=== PATIENT | male | born 1945 | race Caucasian/White ===

== ENCOUNTER → 2017-07-09 | Outpatient (CLI) | payer MEDICARE, BC ==
[~2017-07-09] MED LIST: AMLO5TAB2 GT; AMLO5TAB2 PO; ATEN100T88 PO; DOXA1TAB2 PO; FENO135C PO; LISI20TA PO; LOSA100T7 PO; METF-380 PO; POTA8TAB PO; TRIA1TAB5 PO
--- NOTE | 2017-07-09 17:18 | Diagnostic Imaging Report ---
INDICATION: Left knee pain. AP, oblique, and lateral views of the left knee are obtained. FINDINGS: There is medial joint space narrowing with osteophyte formation of moderate severity. There is no significant lateral joint space narrowing. There is some patellofemoral spurring. There is a moderate-sized knee joint effusion. There is no acute fracture. IMPRESSION: Osteoarthritic changes in the medial and patellofemoral compartments with moderate knee joint effusion. No acute fracture. Dictated by: Dictated on workstation # [id number]
== END ==
LOC: RAD 16:26
PROVIDERS: ATTEND Family Medicine
DX: M17.12 Unilateral primary osteoarthritis, left knee (principal)
CPT/HCPCS: 73562

== ENCOUNTER 2017-08-20 08:57 | Outpatient (CLI) | payer MEDICARE ==
[~2017-08-20] VITALS: Ht 170.2 cm; Wt 117.9 kg
[2017-08-20 09:08] VITALS: BP 148/91
[2017-08-20] MEDS ORDERED: CAND32TA8 PO (09:37)
[2017-08-20] MEDS ORDERED: METF1000 PO (09:37)
[2017-08-20] MEDS ORDERED: NF-COLE1GM PO (09:37)
[2017-08-20] MEDS ORDERED: POTA8TAB6 PO (09:37)
[2017-08-20] MEDS ORDERED: DOXA2TAB2 PO (09:37)
[2017-08-20] MEDS ORDERED: TRIA1TAB5 PO (09:37)
[2017-08-20] MEDS ORDERED: ATEN100T PO (09:37)
[2017-08-20] MEDS ORDERED: ESCI10TA55 PO (09:37)
[2017-08-20] MEDS ORDERED: AMLO5TAB2 PO (09:37)
== END 2017-08-20 09:25 | disposition home or self-care (01) ==
LOC: PREOP 08:57
PROVIDERS: ATTEND Orthopaedic Surgery
DX: Z01.818 Encounter for other preprocedural examination (principal); Z11.2 Encounter for screening for other bacterial diseases; M23.8X2 Other internal derangements of left knee
CPT/HCPCS: 87081

== ENCOUNTER 2017-08-26 07:43 | Day surgery (SDC) | payer MEDICARE ==
--- NOTE | 2017-08-19 06:13 | HISTORY AND PHYSICAL ---
DATE OF SERVICE: This will be for outpatient surgery on 08/26/2017 for left knee arthroscopy. HISTORY OF PRESENT ILLNESS: The patient is a 72-year-old gentleman with a known arthrosis of his left knee. He, however, reports catching and locking in his knee. He reports swelling. He understands he will likely require total knee arthroplasty in the future, but does not desire this currently. In order to try to provide some symptomatic relief and help with his mechanical symptoms, he has elected to proceed with surgical intervention. He reports activity limitations because of the knee. He has undergone treatment with rest, activity modifications, and injections without relief. REVIEW OF SYSTEMS: No chest pain, no shortness of breath. No dysuria. PAST MEDICAL HISTORY: Diabetes, hyperlipidemia, hypertension. PAST SURGICAL HISTORY: Right knee arthroscopies. FAMILY HISTORY: Noncontributory. PRIMARY CARE PROVIDER: Dr. Alvarado. MEDICATIONS: Potassium, atenolol, , candesartan, Cardura, escitalopram. ALLERGIES: No known drug allergies. SOCIAL HISTORY: The patient drinks alcohol socially. Denies tobacco use. RADIOGRAPHS: Reveal tricompartmental osteoarthritis with some maintenance of his medial joint space. Lateral joint space is well maintained. PHYSICAL EXAMINATION: GENERAL: The patient is well-developed, well-nourished, no acute distress. HEENT: Normocephalic, atraumatic. Pupils are equal, round, reactive to light. Oropharynx is clear. NECK: Supple, no lymphadenopathy. LUNGS: Clear to auscultation bilaterally. HEART: Regular rate and rhythm. ABDOMEN: Soft, nontender, nondistended. EXTREMITIES: Left knee demonstrates tenderness along his medial joint line. He has patellofemoral crepitus and pain with patellar loading. A slight effusion is noted. Range of motion 0/2/130. There is no varus valgus laxity. Negative anterior and posterior drawer. He has pain medially with Karishma's. He ambulates with an antalgic gait. 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 PLAN: Left knee arthroscopy with chondroplasty and partial meniscectomy. The risks, benefits, options, ramifications and recovery have been discussed at length with the patient. He understands and wishes to proceed. Job ID: [id number] DocumentID: [id number] Dictated Date: 08/18/2017 09:31:37 Liberal Arts Teacher Date: 08/18/2017 10:11:13 Dictated By: JOSELITO DUKE MD
[~2017-08-26] VITALS: Ht 170.2 cm; Wt 117.9 kg
[~2017-08-26 07:43] MED LIST changes: +ATEN100T PO; +CAND32TA8 PO; +DOXA2TAB2 PO; +ESCI10TA55 PO; +METF1000 PO; +NF-COLE1GM PO; +POTA8TAB6 PO
--- OUTSIDE RECORDS SUMMARY | 2017-08-26 07:47 | XMS REPORT | Continuity of Care Document ---
Author Author [facility] Organization [facility] Address Unknown Phone Unavailable Allergies Active Description Code Type Severity Reaction Onset Reported/Identified Relationship to Patient Clinical Status Yes No Known Drug Allergies [id number] Drug Allergy Unknown N/A 02/07/2013 Medications There is no data. Problems Date Dx Coded Attending Type Code Diagnosis Diagnosed By 02/07/2013 DOMINGA WOLF, LYSSA Torres Ot 250.00 DIAB AMIRA WO COMPL, TYPE II OR UNSPEC TY 02/07/2013 DOMINGA WOLF, LYSSA Torres Ot 401.9 HYPERTENSION NOS 02/07/2013 LYSSA ORR MD Ot 562.10 DIVERTICULOSIS COLON (W/O MENT OF HEMORR 02/07/2013 DOMINGA WOLF, LYSSA Torres Ot V12.72 PERSONAL HISTORY OF COLONIC POLYPS 02/07/2013 DOMINGA WOLF, LYSSA Torres Ot V67.09 SURGERY FOLLOW-UP, OTHER SURGERY 06/03/2016 Ot 793.11 SOLITARY PULMONARY NODULE 06/03/2016 Ot V70.3 MED EXAM NEC- ADMIN PURP 06/03/2016 Ot 793.11 SOLITARY PULMONARY NODULE 06/03/2016 LYSSA ORR MD Ot V72.84 EXAM PRE-OPERATIVE NOS 06/25/2016 Ot 793.11 SOLITARY PULMONARY NODULE 06/25/2016 Ot V70.3 MED EXAM NEC- ADMIN PURP 06/25/2016 Ot 793.11 SOLITARY PULMONARY NODULE 06/25/2016 LYSSA ORR MD Ot V72.84 EXAM PRE-OPERATIVE NOS 06/25/2016 YOUNG LARIOS APRN Ot M19.072 PRIMARY OSTEOARTHRITIS, LEFT ANKLE AND F 06/25/2016 YOUNG LARIOS APRN Ot M77.32 CALCANEAL SPUR, LEFT FOOT 07/03/2016 YOUNG LARIOS APRN Ot M19.072 PRIMARY OSTEOARTHRITIS, LEFT ANKLE AND F 07/03/2016 YOUNG LARIOS APRN Ot M77.32 CALCANEAL SPUR, LEFT FOOT 07/30/2017 ARMANDO HIRSCH DO Ot M17.12 UNILATERAL PRIMARY OSTEOARTHRITIS, LEFT 08/06/2017 ARMANDO HIRSCH DO Ot M17.12 UNILATERAL PRIMARY OSTEOARTHRITIS, LEFT Procedures There is no data. Results Test Result Range Automated blood complete blood count (hemogram) panel - 06/03/16 16:49 Blood leukocytes automated count (number/volume) 8.4 10*3/uL 4.3-11.0 Blood erythrocytes automated count (number/volume) 5.53 10*6/uL 4.35-5.85 Venous blood hemoglobin measurement (mass/volume) 15.5 g/dL 13.3-17.7 Blood hematocrit (volume fraction) 46 % 40-54 Automated erythrocyte mean corpuscular volume 83 [foz_us] 80-99 Automated erythrocyte mean corpuscular hemoglobin (mass per erythrocyte) 28 pg 25-34 Automated erythrocyte mean corpuscular hemoglobin concentration measurement ( mass/volume) 34 g/dL 32-36 Automated erythrocyte distribution width ratio 13.7 % 10.0-14.5 Automated blood platelet count (count/volume) 179 10*3/uL 130-400 Automated blood platelet mean volume measurement 10.2 [foz_us] 7.4-10.4 Erythrocyte sedimentation rate by westergren method - 06/03/16 16:49 Erythrocyte sedimentation rate by westergren method 1 mm 0-30 Comprehensive metabolic panel - 06/03/16 16:49 Serum or plasma sodium measurement (moles/volume) 133 mmol/L 135-145 Serum or plasma potassium measurement (moles/volume) 3.9 mmol/L 3.6-5.0 Serum or plasma chloride measurement (moles/volume) 100 mmol/L 98-107 Carbon dioxide 21 mmol/L 21-32 Serum or plasma anion gap determination (moles/volume) 12 mmol/L 5-14 Serum or plasma urea nitrogen measurement (mass/volume) 8 mg/dL 7-18 Serum or plasma creatinine measurement (mass/volume) 0.73 mg/dL 0.60-1.30 Serum or plasma urea nitrogen/creatinine mass ratio 11 NRG Serum or plasma creatinine measurement with calculation of estimated glomerular filtration rate > NRG Serum or plasma glucose measurement (mass/volume) 83 mg/dL 70-105 Serum or plasma calcium measurement (mass/volume) 9.5 mg/dL 8.5-10.1 Serum or plasma total bilirubin measurement (mass/volume) 0.5 mg/dL 0.1-1.0 Serum or plasma alkaline phosphatase measurement (enzymatic activity/volume) 53 U/L 40-136 Serum or plasma aspartate aminotransferase measurement (enzymatic activity/ volume) 17 U/L 5-34 Serum or plasma alanine aminotransferase measurement (enzymatic activity/volume ) 23 U/L 0-55 Serum or plasma protein measurement (mass/volume) 7.2 g/dL 6.4-8.2 Serum or plasma albumin measurement (mass/volume) 4.4 g/dL 3.2-4.5 Serum or plasma uric acid measurement (mass/volume) - 06/03/16 16:49 Serum or plasma uric acid measurement (mass/volume) 4.0 mg/dL 2.6-7.2 Methicillin resistant Staphylococcus aureus (MRSA) screening culture - 09:18 Methicillin resistant Staphylococcus aureus (MRSA) screening culture NEG NRG Encounters ACCT No. Visit Date/Time Discharge Status Pt. Type Provider Facility Loc./Unit Complaint [id number] 08/20/2017 08:57:00 08/20/2017 09:25:00 DIS Outpatient JOSELITO DUKE MD [facility] PREOP LEFT KNEE SCOPE/ PART MED.MEN REP AND CHONDROPLASTY [id number] 07/09/2017 16:26:00 07/09/2017 23:59:59 CLS Outpatient ARMANDO HIRSCH DO [facility] RAD L KNEE PAIN [id number] 06/03/2016 16:32:00 06/03/2016 23:59:59 CLS Outpatient YOUNG LARIOS APRN [facility] RAD LEFT FOOT PAIN, REDNESS,SWELLING [id number] 02/07/2013 11:03:00 02/07/2013 14:50:00 DIS Outpatient LYSSA ORR MD [facility] SDC HX POLYPS [id number] 02/02/2013 07:30:00 02/02/2013 23:59:59 CLS Outpatient LYSSA ORR MD [facility] PREOP HX POLYPS [id number] 08/26/2017 09:45:00 PEN Preadmit JOSELITO DUKE MD [facility] LEFT KNEE MEDIAL MENISCUS TEAR [id number] 02/17/2012 13:33:00 Document Registration [id number] 07/09/2011 17:14:00 Document Registration
[2017-08-26 07:50] VITALS: BP 136/94
[2017-08-26] MEDS ORDERED: LACTATED RINGERS 1,000 ML IV PRN (07:50)
[2017-08-26] MEDS ORDERED: ceFAZolin INJECTION 1,000 MG in D5W 50 ML IVPB SOLUTION 50 ML IV ONE (08:00)
[2017-08-26] MEDS ORDERED: BUPIVACAINE 0.25% 30 ML (SENSORCAINE) VIAL ONE (08:11)
[2017-08-26] MEDS ORDERED: morphine PF (DURAMORPH) 10 MG/10 ML AMP ONE (08:11)
[2017-08-26] MEDS ORDERED: fentaNYL INJECTION 100 MCG/2 ML AMP ONE (08:24)
[2017-08-26] MEDS ORDERED: MIDAZOLAM 2 MG/2 ML (VERSED) VIAL ONE (08:24)
[2017-08-26] MEDS ORDERED: ceFAZolin 1,000 MG (ANCEF) VIAL ONE (08:51)
[2017-08-26] MEDS ORDERED: NS (IVPB) 50 ML ONE (08:51)
--- NOTE | 2017-08-26 09:20 | Progress Note-Pre Operative ---
Pre-Operative Progress Note H&P Reviewed The H&P was reviewed, patient examined and no changes noted. Date Seen by Provider: Aug 26, 2017 Time Seen by Provider: 09:18 Date H&P Reviewed: Aug 26, 2017 Time H&P Reviewed: 09:18 Pre-Operative Diagnosis: left knee medial meniscus tear and chondromalacia JOSELITO DUKE MD Aug 26, 2017 09:20
--- NOTE | 2017-08-26 09:22 | Progress Note-Post Operative ---
Post-Operative Progess Note Surgeon (s)/Woodworking Belt Sander (s) Surgeon JOSELITO DUKE MD Woodworking Belt Sander: John Thompson Pre-Operative Diagnosis left knee medial meniscus tear and chondromalacia Post-Operative Diagnosis left knee medial meniscus and lateral meniscus tears and chondromalacia of the patella, trochlea and lateral femoral condyle Procedure & Operative Findings Date of Procedure 08/26/17 Procedure Performed/Findings left knee arthroscopic partial medial and lateral meniscectomy and chondroplasty of the patella, trochlea and lateral femoral condyle Anesthesia Type GETA Estimated Blood Loss Estimated blood loss (mL): minimal Specimens/Packing Specimens Removed none Packing: none JOSELITO DUKE MD Aug 26, 2017 09:22
[2017-08-26] MEDS ORDERED: HYDROcodone/APAP 7.5 MG/325 MG (LORTAB, LORCET PLUS) TABLET PO PRN (09:30)
[2017-08-26] MEDS ORDERED: proPOfol 200 MG/20 ML (DIPRIVAN) VIAL IV ONE (09:46)
[2017-08-26] MEDS ORDERED: LIDOCAINE PF 2% 5 ML (XYLOCAINE) VIAL ONE (09:46)
[2017-08-26] MEDS ORDERED: SEVOFLURANE (ULTANE) 15 ML INHAL SOLN ONE (09:57)
[2017-08-26] MEDS ORDERED: ONDANSETRON 4 MG/2 ML (SDV) Z0FRAN ONE (09:57)
[2017-08-26] MEDS ORDERED: morphine INJ 10 MG/ML 1ML (SYR OR VIAL) IVP PRN (10:15)
[2017-08-26 11:00] VITALS: BP 103/70
[2017-08-26 11:06] VITALS: BP 103/70
[2017-08-26] MEDS ORDERED: HYDR-34 PO (11:34)
[2017-08-26 11:35] VITALS: BP 129/78
--- NOTE | 2017-08-26 14:17 | Physical Therapy Progress Note ---
Therapy Progress Note Patient visit. Pt reports he does not feel he needs PT. Reports he plans to use a cane but does have a FWW. Pt demonstrated the ability to ambulate with a FWW and a cane. Reviewed HEP and pt and spouse verbalized understanding. Educated on sequencing on stairs and use of ice. Pt and voiced no concerns post visit. CODY CHAUDHRY PT Aug 26, 2017 14:16
--- NOTE | 2017-08-26 20:05 | OPERATIVE REPORT ---
DATE OF SERVICE: 08/26/2017 PREOPERATIVE DIAGNOSES: 1. Left knee medial meniscal tear. 2. Left knee chondromalacia of the medial and patellofemoral compartments. POSTOPERATIVE DIAGNOSES: 1. Left knee medial meniscal tear. 2. Left knee lateral meniscal tear. 3. Left knee chondromalacia of the patella. 4. Left knee chondromalacia of the trochlea. 5. Left knee chondromalacia of the lateral femoral condyle. PROCEDURES: 1. Left knee arthroscopic partial medial meniscectomy. 2. Left knee arthroscopic partial lateral meniscectomy. 3. Left knee chondroplasty of the patella. 4. Left knee arthroscopic chondroplasty of the trochlea. 5. Left knee arthroscopic chondroplasty of the lateral femoral condyle. SURGEON: Joselito Duke MD. TOBACCO STRIPPER: MACEY Patel, who assisted throughout the procedure and closed the incisions. ANESTHESIA: General endotracheal by Dr. Valentin. TOURNIQUET TIME: Not applicable. ESTIMATED BLOOD LOSS: Minimal. DRAINS: None. COMPLICATIONS: None. POSTOPERATIVE PLANS: Routine arthroscopy protocol. The patient was transferred to the recovery room awake in stable condition. STATEMENT OF MEDICAL NECESSITY: The patient is a 72-year-old gentleman with progressively worsening left knee pain. He complained of catching, locking and swelling. Radiographs revealed medial patellofemoral arthrosis. The patient understood that arthroscopy could help with his mechanical symptoms, but would not cure his arthritic symptoms. He was trying to provide symptomatic relief prior to a total knee arthroplasty. Examination under anesthesia revealed range of motion 0/2/130 with negative Jen, negative anterior and posterior drawer. No varus valgus laxity, negative pivot shift. Arthroscopic findings, the patella demonstrated grade II chondral flap centrally and a 10 x 10 area. The trochlea demonstrated grade III chondral flaps centrally 5 x 15 area. The medial and lateral gutters were clear. Lateral compartment demonstrated a horizontal cleavage tear of the posterior horn and body of the meniscus involving approximately 1-1/2 of the body. In addition, there were grade III chondral flaps over the weightbearing portion of the femoral condyle and a 10 x 10 area, the ACL and PCL were intact. The medial compartment demonstrated grade IV chondral loss on the adjacent femur and tibia and a 10 x 15 area. In addition, there was a degenerative tear involving approximately 1-1/2 of the posterior horn and body. DESCRIPTION OF PROCEDURE: After risks and benefits of procedure were discussed and questions were answered, informed consent was signed and placed on chart. The operative site was confirmed in the preoperative holding area and initialed by the surgeon. The patient was then transferred to the operating room and after adequate levels of general endotracheal anesthetic were obtained, a timeout was called confirming the operative site. Examination under anesthesia was performed with findings noted. The left lower extremity was then prepped and draped in the usual sterile fashion. The knee joint was injected with 60 mL of fluid. Standard inferolateral portals placed with the arthroscope under direct visualization, an inferior medial portal was created. The menisci and cruciates were carefully probed with the above findings noted. The unstable chondral flaps on the patella and trochlea were debrided and shaved back to a stable edge. The scope was then redirected into the lateral compartment. The unstable chondral flaps on the lateral femoral condyle were debrided with shaver back to a stable edge of the posterior horn and body lateral meniscus were debrided with the biter and shaver approximately 1-1/2 posterior torn and body. This was carefully probed with no further tearing or instability noted. The scope was then redirected into the medial compartment. The unstable medial meniscal tear was debrided. The shaver removing approximately 1-1/2 of the posterior horn and body. This was carefully probed with no further tearing or instability noted. The knee was copiously irrigated. Portal sites closed with 3-0 nylon in a simple interrupted fashion. Knee was injected with Duramorph. Port sites were infiltrated with plain Marcaine. A soft dressing was applied. The patient was transferred to the recovery room awake and in stable condition. Job ID: [id number] DocumentID: [id number] Dictated Date: 08/26/2017 10:09:01 Printmaker Date: 08/26/2017 20:04:24 Dictated By: JOSELITO DUKE MD
== END 2017-08-26 12:40 | disposition home or self-care (01) ==
LOC: SDC 07:43
PROVIDERS: ATTEND Orthopaedic Surgery
DX: M23.8X2 Other internal derangements of left knee (principal); M22.42 Chondromalacia patellae, left knee; E11.9 Type 2 diabetes mellitus without complications; E78.5 Hyperlipidemia, unspecified; I10 Essential (primary) hypertension; Z79.899 Other long term (current) drug therapy; F32.9 Major depressive disorder, single episode, unspecified; E66.01 Morbid (severe) obesity due to excess calories; Z68.41 Body mass index [BMI] 40.0-44.9, adult
CPT/HCPCS: 82962

== ENCOUNTER → 2017-11-19 | Outpatient (CLI) | payer MEDICARE ==
[~2017-11-19] VITALS: Ht 170.2 cm; Wt 117.0 kg
[~2017-11-19] MED LIST changes: +CATHETER FLUSH 10 ML SYR IV PRN; +HYDR-34 PO; -METF1000 PO; +METF10002 PO; +REGADENOSON 0.4 MG/5 ML SYR (LEXISCAN) IV ONE
[2017-11-19 09:12] VITALS: BP 141/80
[2017-11-19 09:21] VITALS: BP 130/90
[2017-11-19 12:33] VITALS: BP 141/80
--- NOTE | 2017-11-19 12:34 | Cardiology Stress Test Report ---
Stress Test Report Type of NM Stress Test: Test Type: LEXISCAN 0.4MG/5ML Date of Procedure/Referring: Date of Procedure: Nov 19, 2017 PCP Irais Alvarado DO Admitting Physician Irais Alvarado DO Indications: Preoperative cardiovascular risk assessment Baseline Heart Rate: 60 Baseline Blood Pressure: Blood Pressure Systolic: 141 Blood Pressure Diastolic: 80 Baseline EKG: Baseline EKG: sinus rhythm Summary: The patient was brought to the stress level off informed consent was taken. Lexiscan stress test was performed according to the protocol. 0.4 mg of IV Lexiscan was given. Low-grade exercise was performed. Initial EKG was sinus rhythm at 60 BPM. Blood pressure 141/80 mmHg. Maximum heart rate of 76 bpm and blood pressure 130/90 mmHg. Patient did not have any chest pain, EKG changes or arrhythmias noted during the stress test. 10.58 mCi of Myoview was given for rest imaging and 30.0 mCi of Myoview was given for stress imaging. Transient ischemic dilatation score was 1.12. Ejection fraction of 76 percent with normal wall motion. Normal perfusion during rest and stress. Conclusion: Fibrotic a stress test is negative for ischemia. Normal wall motion and normal EF. Normal myocardial perfusion during rest and stress imaging. Copy Copies To 1: IRAIS ALVARADO M RIZWAN MD Nov 19, 2017 12:33 pm
--- NOTE | 2017-11-20 15:56 | Physician Query-Final Dx ---
CHRIS BENNETT 11/20/17 1556: Clinic Account Progress/Dx Physician Query: Please give diagnosis Please provide diagnosis for the pre-op stress test. Date of Service Nov 19, 2017 at 07:23 ARMANDO HIRSCH DO 11/23/17 1242: Clinic Account Progress/Dx DIAGNOSIS: Diagnosis Chest Pain/Coronary risk factors CHRIS BENNETT Nov 20, 2017 15:56 ARMANDO HIRSCH DO Nov 23, 2017 12:42
== END ==
LOC: CARD 07:23
PROVIDERS: ATTEND Family Medicine
DX: Z01.810 Encounter for preprocedural cardiovascular examination (principal); R07.9 Chest pain, unspecified
CPT/HCPCS: 78452; 93017

== ENCOUNTER → 2017-11-27 | Outpatient (CLI) | payer MEDICARE ==
[~2017-11-27] MED LIST changes: -CATHETER FLUSH 10 ML SYR IV PRN; -REGADENOSON 0.4 MG/5 ML SYR (LEXISCAN) IV ONE
== END ==
LOC: CARD 09:38
PROVIDERS: ATTEND Family Medicine
DX: Z01.810 Encounter for preprocedural cardiovascular examination (principal); I35.1 Nonrheumatic aortic (valve) insufficiency
CPT/HCPCS: 93306

== ENCOUNTER 2018-03-11 13:44 | Outpatient (CLI) | payer MEDICARE ==
[~2018-03-11] VITALS: Ht 170.2 cm; Wt 116.1 kg
[2018-03-11 13:52] VITALS: BP 133/88
[2018-03-11 14:44] LABS: BASOPHILS % (AUTO) 1 % (0-10); EOSINOPHILS # (AUTO) 0.2 10^3/uL (0.0-0.3); EOSINOPHILS % (AUTO) 3 % (0-10); HEMATOCRIT 40 % (40-54); HEMOGLOBIN 13.8 G/DL (13.3-17.7); LYMPHOCYTES # (AUTO) 1.7 X 10^3 (1.0-4.0); LYMPHOCYTES % (AUTO) 27 % (12-44); MEAN CORPUSCULAR HEMOGLOBIN 30 PG (25-34); MEAN CORPUSCULAR HGB CONC 35 G/DL (32-36); MEAN CORPUSCULAR VOLUME 87 FL (80-99); MONOCYTES # (AUTO) 0.4 X 10^3 (0.0-1.0); MONOCYTES % (AUTO) 6 % (0-12); NEUTROPHILS # (AUTO) 3.9 X 10^3 (1.8-7.8); NEUTROPHILS % (AUTO) 64 % (42-75); PLATELET COUNT 178 10^3/uL (130-400); RED BLOOD COUNT 4.57 10^6/uL (4.35-5.85); RED CELL DISTRIBUTION WIDTH 14.3 % (10.0-14.5); WHITE BLOOD COUNT 6.1 10^3/uL (4.3-11.0)
[2018-03-11 14:46] LABS: BILIRUBIN,URINE NEGATIVE (NEGATIVE); CLARITY,URINE CLEAR; COLOR,URINE YELLOW; GLUCOSE, URINE (UA) NEGATIVE (NEGATIVE); KETONES,URINE NEGATIVE (NEGATIVE); LEUKOCYTE ESTERASE ,URINE 1+ (NEGATIVE); NITRITE,URINE NEGATIVE (NEGATIVE); PH,URINE 7 (5-9); PROTEIN,URINE NEGATIVE (NEGATIVE); UROBILINOGEN,URINE NORMAL (NORMAL)
[2018-03-11 14:54] LABS: BACTERIA,URINE NEGATIVE /HPF; RBC,URINE RARE /HPF; SQUAMOUS EPITHELIAL CELL,UR RARE /HPF; WBC,URINE RARE /HPF
[2018-03-11 14:58] LABS: PROTHROMBIN TIME PATIENT 12.8 SEC (12.2-14.7)
[2018-03-11 15:08] LABS: ALANINE AMINOTRANSFERASE 21 U/L (0-55); ALBUMIN 4.2 GM/DL (3.2-4.5); ALKALINE PHOSPHATASE 55 U/L (40-136); BILIRUBIN,TOTAL 0.4 MG/DL (0.1-1.0); BUN/CREATININE RATIO 12; CALCIUM 9.8 MG/DL (8.5-10.1); CARBON DIOXIDE 25 MMOL/L (21-32); CHLORIDE 100 MMOL/L (98-107); CREATININE SERUM 0.74 MG/DL (0.60-1.30); GFR ESTIMATED > 60; GLUCOSE 95 MG/DL (70-105); SODIUM 134 MMOL/L (135-145); TOTAL PROTEIN 6.9 GM/DL (6.4-8.2)
[2018-03-11 15:10] LABS: ERYTHROCYTE SEDIMENTATION RATE 5 MM/HR (0-30)
[2018-03-11] MEDS ORDERED: BUPR-42 PO (15:21)
[2018-03-11] MEDS ORDERED: METF10002 PO (15:21)
[2018-03-11] MEDS ORDERED: ESCI20TA45 PO (15:21)
[2018-03-11] MEDS ORDERED: VALS320T15 PO (15:21)
[2018-03-11] MEDS ORDERED: ATOR20TA66 PO (15:24)
[2018-03-12] MEDS ORDERED: SITA100T12 PO (14:51)
[2018-03-12] MEDS ORDERED: GLUC1CAP37 PO (14:51)
[2018-03-12] MEDS ORDERED: NAPR220T66 PO (14:52)
== END 2018-03-11 14:40 | disposition home or self-care (01) ==
LOC: PREOP 13:44
PROVIDERS: ATTEND Orthopaedic Surgery
DX: Z01.812 Encounter for preprocedural laboratory examination (principal); Z11.2 Encounter for screening for other bacterial diseases; M17.12 Unilateral primary osteoarthritis, left knee; R53.83 Other fatigue
CPT/HCPCS: 36415; 80053; 81000; 85025; 85610; 85652; 86850; 86900; 86901; 87081

== ENCOUNTER 2018-06-03 09:48 | Inpatient (IN) | payer MEDICARE ==
[~2018-06-03] VITALS: Ht 170.2 cm; Wt 117.7 kg
[~2018-06-03 09:48] MED LIST changes: +AMLO5TAB7 PO; +ASPI-983 PO; +ATOR20TA66 PO; +BUPR-42 PO; +CYAN10006 PO; +ESCI20TA45 PO; +GLUC1CAP37 PO; +METF-399 PO; -METF10002 PO; +NAPR220T66 PO; +OXYC1TAB87 PO; +SITA100T12 PO; +VALS320T15 PO
[2018-06-03 15:15] VITALS: BP 169/81
--- OUTSIDE RECORDS SUMMARY | 2018-06-03 15:18 | XMS REPORT | Continuity of Care Document ---
Author Author [facility] Organization [facility] Address Unknown Phone Unavailable Allergies Active Description Code Type Severity Reaction Onset Reported/Identified Relationship to Patient Clinical Status Yes No Known Drug Allergies [id number] Drug Allergy Unknown N/A 02/07/2013 Medications There is no data. Problems Date Dx Coded Attending Type Code Diagnosis Diagnosed By 02/07/2013 DOMINGA WOLF, LYSSA Torres Ot 250.00 DIAB AMIRA WO COMPL, TYPE II OR UNSPEC TY 02/07/2013 DOMINGA WOLF, LYSSA Torres Ot 401.9 HYPERTENSION NOS 02/07/2013 DOMINGA WOLF, LYSSA Torres Ot 562.10 DIVERTICULOSIS COLON (W/O MENT OF [...] M77.32 CALCANEAL SPUR, LEFT FOOT 07/30/2017 ARMANDO ALVARADO DO Ot M17.12 UNILATERAL PRIMARY OSTEOARTHRITIS, LEFT 08/06/2017 ARMANDO ALVARADO DO Ot M17.12 UNILATERAL PRIMARY OSTEOARTHRITIS, LEFT 08/20/2017 JOSELITO DUKE MD Ot M23.8X2 OTHER INTERNAL DERANGEMENTS OF LEFT KNEE 08/20/2017 JOSELITO DUKE MD Ot Z01.818 ENCOUNTER FOR OTHER PREPROCEDURAL EXAMIN 08/20/2017 JOSELITO DUKE MD Ot Z11.2 ENCOUNTER FOR SCREENING FOR OTHER BACTER 08/26/2017 JOSELITO DUKE MD Ot E11.9 TYPE 2 DIABETES MELLITUS WITHOUT COMPLIC 08/26/2017 JOSELITO DUKE MD Ot E66.01 MORBID (SEVERE) OBESITY DUE TO EXCESS CA 08/26/2017 JOSELITO DUKE MD Ot E78.5 HYPERLIPIDEMIA, UNSPECIFIED 08/26/2017 JOSELITO DUKE MD Ot F32.9 MAJOR DEPRESSIVE DISORDER, SINGLE EPISOD 08/26/2017 JOSELITO DUKE MD Ot I10 ESSENTIAL (PRIMARY) HYPERTENSION 08/26/2017 JOSELITO DUKE MD Ot M22.42 CHONDROMALACIA PATELLAE, LEFT KNEE 08/26/2017 JOSELITO DUKE MD Ot M23.8X2 OTHER INTERNAL DERANGEMENTS OF LEFT KNEE 08/26/2017 JOSELITO DUKE MD Ot Z68.41 BODY MASS INDEX (BMI) 40.0-44.9, ADULT 08/26/2017 JOSELITO DUKE MD Ot 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 08/27/2017 JOSELITO DUKE MD Ot E11.9 TYPE 2 DIABETES MELLITUS WITHOUT COMPLIC 08/27/2017 JOSELITO DUKE MD Ot E66.01 MORBID (SEVERE) OBESITY DUE TO EXCESS CA 08/27/2017 JOSELITO DUKE MD Ot E78.5 HYPERLIPIDEMIA, UNSPECIFIED 08/27/2017 JOSELITO DUKE MD Ot F32.9 MAJOR DEPRESSIVE DISORDER, SINGLE EPISOD 08/27/2017 JOSELITO DUKE MD Ot I10 ESSENTIAL (PRIMARY) HYPERTENSION 08/27/2017 JOSELITO DUKE MD Ot M22.42 CHONDROMALACIA PATELLAE, LEFT KNEE 08/27/2017 JOSELITO DUKE MD Ot M23.8X2 OTHER INTERNAL DERANGEMENTS OF LEFT KNEE 08/27/2017 JOSELITO DUKE MD Ot Z68.41 BODY MASS INDEX (BMI) 40.0-44.9, ADULT 08/27/2017 JOSELITO DUKE MD Ot Z79.899 OTHER INTERMEDIATE (CURRENT) DRUG THERAPY 08/28/2017 JOSELITO DUKE MD Ot E11.9 TYPE 2 DIABETES MELLITUS WITHOUT COMPLIC 08/28/2017 JOSELITO DUKE MD Ot E66.01 MORBID (SEVERE) OBESITY DUE TO EXCESS CA 08/28/2017 JOSELITO DUKE MD Ot E78.5 HYPERLIPIDEMIA, UNSPECIFIED 08/28/2017 JOSELITO DUKE MD Ot F32.9 MAJOR DEPRESSIVE DISORDER, SINGLE EPISOD 08/28/2017 JOSELITO DUKE MD Ot I10 ESSENTIAL (PRIMARY) HYPERTENSION 08/28/2017 JOSELITO DUKE MD Ot M22.42 CHONDROMALACIA PATELLAE, LEFT KNEE 08/28/2017 JOSELITO DUKE MD Ot M23.8X2 OTHER INTERNAL DERANGEMENTS OF LEFT KNEE 08/28/2017 JOSELITO DUKE MD Ot Z68.41 BODY MASS INDEX (BMI) 40.0-44.9, ADULT 08/28/2017 JOSELITO DUKE MD Ot Z79.899 OTHER INTERMEDIATE (CURRENT) DRUG THERAPY 09/01/2017 JOSELITO DUKE MD Ot E11.9 TYPE 2 DIABETES MELLITUS WITHOUT COMPLIC 09/01/2017 JOSELITO DUKE MD Ot E66.01 MORBID (SEVERE) OBESITY DUE TO EXCESS CA 09/01/2017 JOSELITO DUKE MD Ot E78.5 HYPERLIPIDEMIA, UNSPECIFIED 09/01/2017 JOSELITO DUKE MD Ot F32.9 MAJOR DEPRESSIVE DISORDER, SINGLE EPISOD 09/01/2017 JOSELITO DUKE MD Ot I10 ESSENTIAL (PRIMARY) HYPERTENSION 09/01/2017 JOSELITO DUKE MD Ot M22.42 CHONDROMALACIA PATELLAE, LEFT KNEE 09/01/2017 JOSELITO DUKE MD Ot M23.8X2 OTHER INTERNAL DERANGEMENTS OF LEFT KNEE 09/01/2017 JOSELITO DUKE MD Ot Z68.41 BODY MASS INDEX (BMI) 40.0-44.9, ADULT 09/01/2017 JOSELITO DUKE MD Ot Z79.899 OTHER INTERMEDIATE (CURRENT) DRUG THERAPY 11/04/2017 DOMINGA WOLF, LYSSA Torres Ot V72.84 EXAM PRE-OPERATIVE NOS 11/04/2017 YOUNG LARIOS BLINDSTITCH LAP[employer] PADDER Ot M19.072 PRIMARY OSTEOARTHRITIS, LEFT ANKLE AND F 11/04/2017 YOUNG LARIOS [employer] P[employer]DER Ot M77.32 CALCANEAL SPUR, LEFT FOOT 11/04/2017 ORENDER DO, ARMANDO S Ot M17.12 UNILATERAL PRIMARY OSTEOARTHRITIS, LEFT 11/05/2017 DOMINGA WOLF, LYSSA Torres Ot V72.84 EXAM PRE-OPERATIVE NOS 11/05/2017 YOUNG LARIOS BL[employer] P[employer]DER Ot M19.072 PRIMARY OSTEOARTHRITIS, LEFT ANKLE AND F 11/05/2017 YOUNG LARIOS BL[employer] PADDER Ot M77.32 CALCANEAL SPUR, LEFT FOOT 11/05/2017 ORENDER DO, ARMANDO S Ot M17.12 UNILATERAL PRIMARY OSTEOARTHRITIS, LEFT 11/18/2017 KODI, SHARLA R BL[employer] LAP[employer] PADDER Ot M17.12 UNILATERAL PRIMARY OSTEOARTHRITIS, LEFT 11/18/2017 KODI, SHARLA R BL[employer] P[employer]DER Ot Z01.810 ENCOUNTER FOR PREPROCEDURAL CARDIOVASCUL 11/18/2017 KODI, SHARLA R BL[employer] P[employer]DER Ot Z01.811 ENCOUNTER FOR PREPROCEDURAL RESPIRATORY 11/18/2017 KODI, SHARLA R [employer] P[employer] Ot Z96.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 LEFT ARTIFICIAL KNEE JOINT 11/19/2017 DOMINGA WOLF, LYSSA Torres Ot V72.84 EXAM PRE-OPERATIVE NOS 11/19/2017 YOUNG LARIOS BL[employer] P[employer]DER Ot M19.072 PRIMARY OSTEOARTHRITIS, LEFT ANKLE AND F 11/19/2017 YOUNG LARIOS [employer] P[employer]DER Ot M77.32 CALCANEAL SPUR, LEFT FOOT 11/19/2017 ORENDER DO, ARMANDO S Ot M17.12 UNILATERAL PRIMARY OSTEOARTHRITIS, LEFT 11/19/2017 KODI, SHARLA R BL[employer] P[employer]DER Ot M17.12 UNILATERAL PRIMARY OSTEOARTHRITIS, LEFT 11/19/2017 KODI, SHARLA R BL[employer] P[employer]DER Ot Z01.810 ENCOUNTER FOR PREPROCEDURAL CARDIOVASCUL 11/19/2017 KODI, SHARLA R BL[employer] P[employer]DER Ot Z01.811 ENCOUNTER FOR PREPROCEDURAL RESPIRATORY 11/19/2017 KODI, SHARLA R BL[employer] P[employer]DER Ot Z96.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 LEFT ARTIFICIAL KNEE JOINT 11/23/2017 ORENDER DO, ARMANDO S Ot R07.9 CHEST PAIN, UNSPECIFIED 11/23/2017 ORENDER DO, ARMANDO S Ot Z01.810 ENCOUNTER FOR PREPROCEDURAL CARDIOVASCUL 11/27/2017 ORENDER DO, ARMANDO S Ot I35.1 NONRHEUMATIC AORTIC (VALVE) INSUFFICIENC 11/27/2017 ORENDER DO, ARMANDO S Ot Z01.810 ENCOUNTER FOR PREPROCEDURAL CARDIOVASCUL 12/07/2017 KODI, SHARLA R BL[employer] LAP[employer] PADDER Ot M17.12 UNILATERAL PRIMARY OSTEOARTHRITIS, LEFT 12/07/2017 KODI, SHARLA R BLINDSTITCH LAP[employer] PADDER Ot Z01.810 ENCOUNTER FOR PREPROCEDURAL CARDIOVASCUL 12/07/2017 KODI, SHARLA R BL[employer]ITCH LAP[employer] P[employer]DER Ot Z01.811 ENCOUNTER FOR PREPROCEDURAL RESPIRATORY 12/07/2017 KODI, SHARLA R BL[employer] P[employer]DER Ot Z96.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 LEFT ARTIFICIAL KNEE JOINT 12/09/2017 KODI, SHARLA R BL[employer]ITCH LAP[employer] PADDER Ot M17.12 UNILATERAL PRIMARY OSTEOARTHRITIS, LEFT 12/09/2017 KODI, SHARLA R BLIND[employer]ITCH LAP[employer] PADDER Ot Z01.810 ENCOUNTER FOR PREPROCEDURAL CARDIOVASCUL 12/09/2017 KODI, SHARLA R BLIND[employer]ITCH LAP[employer] PADDER Ot Z01.811 ENCOUNTER FOR PREPROCEDURAL RESPIRATORY 12/09/2017 KODI, SHARLA R BL[employer]ITCH LAP[employer] P[employer]DER Ot Z96.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 LEFT ARTIFICIAL KNEE JOINT 12/09/2017 ORENDER DO, ARMANDO S Ot R07.9 CHEST PAIN, UNSPECIFIED 12/09/2017 ORENDER DO, ARMANDO S Ot Z01.810 ENCOUNTER FOR PREPROCEDURAL CARDIOVASCUL 12/17/2017 ORENDER DO, ARMANDO S Ot I35.1 NONRHEUMATIC AORTIC (VALVE) INSUFFICIENC 12/17/2017 ORENDER DO, ARMANDO S Ot Z01.810 ENCOUNTER FOR PREPROCEDURAL CARDIOVASCUL 12/17/2017 ORENDER DO, ARMANDO S Ot R07.9 CHEST PAIN, UNSPECIFIED 12/17/2017 ORENDER DO, ARMANDO S Ot Z01.810 ENCOUNTER FOR PREPROCEDURAL CARDIOVASCUL 12/23/2017 ARMANDO ALVARADO DO Ot I35.1 NONRHEUMATIC AORTIC (VALVE) INSUFFICIENC 12/23/2017 ARMANDO ALVARADO DO Ot Z01.810 ENCOUNTER FOR PREPROCEDURAL CARDIOVASCUL 03/11/2018 Ot M17.12 UNILATERAL PRIMARY OSTEOARTHRITIS, LEFT 03/11/2018 Ot R53.83 OTHER FATIGUE 03/11/2018 Ot Z01.812 ENCOUNTER FOR PREPROCEDURAL LABORATORY E 03/11/2018 Ot Z11.2 ENCOUNTER FOR SCREENING FOR OTHER BACTER 03/12/2018 Ot M17.12 UNILATERAL PRIMARY OSTEOARTHRITIS, LEFT 03/12/2018 Ot R53.83 OTHER FATIGUE 03/12/2018 Ot Z01.812 ENCOUNTER FOR PREPROCEDURAL LABORATORY E 03/12/2018 Ot Z11.2 ENCOUNTER FOR SCREENING FOR OTHER BACTER 03/19/2018 JOSELITO DUKE MD Ot E11.9 TYPE 2 DIABETES MELLITUS WITHOUT COMPLIC 03/19/2018 JOSELITO DUKE MD Ot E78.5 HYPERLIPIDEMIA, UNSPECIFIED 03/19/2018 JOSELITO DUKE MD Ot F32.9 MAJOR DEPRESSIVE DISORDER, SINGLE EPISOD 03/19/2018 JOSELITO DUKE MD Ot G47.33 OBSTRUCTIVE SLEEP APNEA (ADULT) (PEDIATR 03/19/2018 JOSELITO DUKE MD Ot I10 ESSENTIAL (PRIMARY) HYPERTENSION 03/19/2018 JOSELITO DUKE MD Ot M17.12 UNILATERAL PRIMARY OSTEOARTHRITIS, LEFT 03/19/2018 JOSELITO DUKE MD Ot R33.9 RETENTION OF URINE, UNSPECIFIED 03/19/2018 JOSELITO DUKE MD Ot Z79.84 INTERMEDIATE (CURRENT) USE OF ORAL HYPOGLYC Procedures Code Description Performed By Performed On [id number] REPLACE OF L KNEE JT WITH SYNTH SUB, JULIA 03/17/2018 Results Test Result Range Automated blood complete [...] Staphylococcus aureus (MRSA) screening culture NEG NRG Capillary blood glucose measurement by glucometer (mass/volume) - 08/26/17 07: 59 Capillary blood glucose measurement by glucometer (mass/volume) 119 mg/dL 70-110 Capillary blood glucose measurement by glucometer (mass/volume) - 03/19/18 10: 50 Capillary blood glucose measurement by glucometer (mass/volume) 200 mg/dL 70-110 Encounters ACCT No. Visit Date/Time Discharge Status Pt. Type Provider Facility Loc./Unit Complaint [id number] 03/17/2018 06:05:00 03/19/2018 15:20:00 DIS Inpatient JOSELITO DUKE MD [facility] 4TH OSTEOARTHRITIS LEFT KNEE [id number] 11/27/2017 09:38:00 11/27/2017 23:59:59 CLS Outpatient ARMANDO ALVARADO DO [facility] CARD PRESURGICAL CLEARANCE [id number] 11/19/2017 07:23:00 11/19/2017 23:59:59 CLS Outpatient ARMANDO ALVARADO DO [facility] CARD PRESURGICAL CLEARANCE [id number] 11/11/2017 10:45:00 11/11/2017 23:59:59 CLS Preadmit JOSELITO DUKE MD LEFT KNEE SEVERE OSTEOARTHRITIS [id number] 11/03/2017 14:30:00 11/03/2017 23:59:59 CLS Outpatient SHARLA MARIEE APRN [facility] CARD PRE SURGICAL CLEARANCE [id number] 08/26/2017 07:43:00 08/26/2017 12:40:00 DIS Outpatient JOSELITO DUKE MD [facility] LEFT KNEE MEDIAL MENISCUS TEAR [id number] 08/20/2017 08:57:00 08/20/2017 09:25:00 DIS Outpatient JOSELITO DUKE MD [facility] PREOP LEFT KNEE SCOPE/ PART MED.MEN REP AND CHONDROPLASTY [id number] 07/09/2017 16:26:00 07/09/2017 23:59:59 CLS Outpatient ARMANDO ALVARADO DO [facility] RAD L KNEE PAIN [id number] 06/03/2016 16:32:00 06/03/2016 23:59:59 CLS Outpatient RIC YOUNGTyler Hyde APRN [facility] RAD LEFT FOOT PAIN, REDNESS,SWELLING [id number] 02/07/2013 11:03:00 02/07/2013 14:50:00 DIS Outpatient LYSSA ORR MD [facility] SDC HX POLYPS [id number] 02/02/2013 07:30:00 02/02/2013 23:59:59 CLS Outpatient LYSSA ORR MD [facility] PREOP HX POLYPS [id number] 03/11/2018 13:44:00 Document Registration [id number] 02/17/2012 13:33:00 Document Registration [id number] 07/09/2011 17:14:00 Document Registration 07/07/17 04/01/2018 23:46:34 04/01/2018 23:59:59 CLS Outpatient Armando Alvarado
[2018-06-03] MEDS ORDERED: IRBE300T18 PO (16:01)
[2018-06-03] MEDS ORDERED: BUPR150T7 PO (16:01)
[2018-06-03] MEDS ORDERED: COLE1TAB PO (16:01)
[2018-06-03] MEDS ORDERED: ASPI-983 PO (16:24)
[2018-06-03] MEDS ORDERED: PATIENT MAY USE OWN MEDS, ALL PO SCH (16:30)
[2018-06-03] MEDS ORDERED: ONDANSETRON 4 MG/2 ML (SDV) Z0FRAN IV PRN (16:30)
[2018-06-03] MEDS ORDERED: PATIENT MAY USE OWN MEDS, ALL MC SCH (16:45)
[2018-06-03 17:00] LABS: BASOPHILS % (AUTO) 0 % (0-10); EOSINOPHILS # (AUTO) 0.2 10^3/uL (0.0-0.3); EOSINOPHILS % (AUTO) 2 % (0-10); HEMATOCRIT 35 % (40-54); HEMOGLOBIN 11.7 G/DL (13.3-17.7); LYMPHOCYTES # (AUTO) 1.7 X 10^3 (1.0-4.0); LYMPHOCYTES % (AUTO) 23 % (12-44); MEAN CORPUSCULAR HEMOGLOBIN 28 PG (25-34); MEAN CORPUSCULAR HGB CONC 33 G/DL (32-36); MEAN CORPUSCULAR VOLUME 83 FL (80-99); MEAN PLATELET VOLUME 9.6 FL (7.4-10.4); MONOCYTES # (AUTO) 0.5 X 10^3 (0.0-1.0); MONOCYTES % (AUTO) 7 % (0-12); NEUTROPHILS % (AUTO) 68 % (42-75); PLATELET COUNT 246 10^3/uL (130-400); RED BLOOD COUNT 4.25 10^6/uL (4.35-5.85); WHITE BLOOD COUNT 7.4 10^3/uL (4.3-11.0)
[2018-06-03] MEDS: inSUlin ASPART (NovoLOG) 1 UNIT/0.01 ML (CHARGE PER UNIT) SC SCH ×2 (17:06→21:02)
[2018-06-03] MEDS: NS IV 1000 ML 1,000 ML IV SCH (17:06)
[2018-06-03 17:18] LABS: ALANINE AMINOTRANSFERASE 18 U/L (0-55); ALBUMIN 3.8 GM/DL (3.2-4.5); ALKALINE PHOSPHATASE 56 U/L (40-136); BILIRUBIN,TOTAL 0.2 MG/DL (0.1-1.0); BUN/CREATININE RATIO 19; CALCIUM 9.5 MG/DL (8.5-10.1); CARBON DIOXIDE 21 MMOL/L (21-32); CHLORIDE 103 MMOL/L (98-107); CREATININE SERUM 0.72 MG/DL (0.60-1.30); GFR ESTIMATED > 60; GLUCOSE 157 MG/DL (70-105); POTASSIUM 3.9 MMOL/L (3.6-5.0); SODIUM 137 MMOL/L (135-145); TOTAL PROTEIN 6.6 GM/DL (6.4-8.2)
--- NOTE | 2018-06-03 18:10 | History & Physicial ---
History of Present Illness History of Present Illness Reason for visit/HPI This is a 72 year old male who had a loose bowel movement overnight that had bright red blood in it. As of this morning he had another 4 loose bowel movements all containing bright red blood. He felt fatigued and presented to my office for evaluation where he was mildly tachycardic with a pulse of 102 and his blood pressure was 110/60. His rectal exam revealed grossly positive red blood. He was directly admitted for surgery consult and further treatment and evaluation. Date of Admission Jun 03, 2018 at 15:15 Date Seen by a Provider: Jun 03, 2018 Time Seen by a Provider: 03:00 I consulted on this patient on 06/03/18 17:44 Attending Physician Irais Alvarado DO Admitting Physician Irais Alvarado DO Consult Allergies and Home Medications Allergies Coded Allergies: No Known Drug Allergies (Unverified , 02/07/13) Home Medications Aspirin 81 Mg Tablet.dr, 81 MG PO BID, (Reported) Atenolol 100 Mg Tablet, 50 MG PO BID take 1/2 tab po BID Prescribed by: IRAIS ALVARADO on 03/19/18 1258 Atorvastatin Calcium 20 Mg Tablet, 20 MG PO DAILY, (Reported) Bupropion HCl 150 Mg Tab.er.24h, 150 MG PO DAILY, (Reported) Colestipol HCl 1 Gm Tablet, 2 GM PO BID, (Reported) TAKES 2 (1GM) TABLETS Cyanocobalamin (Vitamin B-12) 1,000 Mcg Tablet, 2,000 MCG PO DAILY, (Reported) Doxazosin Mesylate 2 Mg Tablet, 2 MG PO HS, (Reported) Escitalopram Oxalate 20 Mg Tablet, 20 MG PO DAILY, (Reported) Glucosa Real 2Kcl/Chondroitin Real 1 Each Capsule, 1 CAP PO BID, (Reported) Irbesartan 300 Mg Tablet, 300 MG PO DAILY, (Reported) Metformin HCl 1,000 Mg Tablet, 1,000 MG PO BID, (Reported) Potassium Chloride 8 Meq Tablet.er, 8 MEQ PO BID, (Reported) Sitagliptin Phosphate 100 Mg Tablet, 100 MG PO DAILY, (Reported) Triamterene/Hydrochlorothiazid 1 Each Tablet, 1 TAB PO DAILY, (Reported) Patient Home Medication List Home Medication List Reviewed: Yes Past Amdsdpj-Ntccch-Nrrfkq Hx Patient Social History Marrital Status: Employed/Student: retired Alcohol Use: Rarely Uses Number of Drinks Today: 0 Alcohol Beverage of Choice: Other Recreational Drug Use: No Smoking Status: Never a Smoker Physical Abuse Screen: No Sexual Abuse: No Recent Foreign Travel: No Contact w/other who traveled: No Recent Hopitalizations: No Recent Infectious Disease Expo: No Immunizations Up To Date Tetanus Booster (TDap): Unknown Pediatric: No Date of Pneumonia Vaccine: May 10, 2009 Date of Influenza Vaccine: May 27, 2018 Seasonal Allergies Seasonal Allergies: No Surgeries Yes (bilat knee scope, LEFT TOTAL KNEE REPLACEMENT 03/17/18) Respiratory No Cardiovascular Yes Hypertension Neurological No Reproductive System Hx Reproductive Disorders: No Genitourinary No Gastrointestinal Yes Polyps Musculoskeletal No Arthritis Endocrine History of Endocrine Disorders: Yes HEENT History of HEENT Disorders: Yes (BILAT CATARACT REMOVED) HEENT Disorders: Cataract Hearing Impairment: Hard of Hearing, Bilateral Hearing Aide Cancer No Psychosocial History of Psychiatric Problem: Yes Behavioral Health Disorders: Depression Integumentary History of Skin or Integumenta: No Blood Transfusions History of Blood Disorders: No Family Medical History Family Hx: Cardiovascular disease G8 BROTHER Diabetes mellitus G8 BROTHER Psychosocial problem 19 MOTHER (bipolar) Review of Systems Constitutional: weakness EENTM: No see HPI, No no symptoms reported, No ear discharge, No hearing loss, No ear pain, No blurred vision, No double vision, No eye pain, No tearing, No vision loss, No dental problems, No hoarseness, No mouth pain, No mouth swelling , No epistaxis, No nose congestion, No nose pain, No throat pain, No throat swelling, No other Respiratory: No no symptoms reported, No see HPI, No cough, No dyspnea on exertion, No hemoptysis, No orthopnea, No phlegm, No short of breath, No stridor , No wheezing, No other Cardiovascular: No no symptoms reported, No see HPI, No chest pain, No edema, No Hx of Intervention, No palpitations, No syncope, No vascular heart diseas, No other Gastrointestinal: diarrhea, other (bright red blood per rectum) Genitourinary: No no symptoms reported, No see HPI, No decreased output, No discharge, No dysuria, No frequency, No hematuria, No hesitancy, No incontinence , No nocturia, No pain, No other Musculoskeletal: No no symptoms reported, No see HPI, No back pain, No gout, No joint pain, No joint swelling, No muscle pain, No muscle stiffness, No muscle cramps, No muscle twitching, No muscle weakness, No neck pain, No other Skin: No no symptoms reported, No see HPI, No change in color, No change in hair/nails, No dryness, No hx of skin cancer, No lesions, No lumps, No pruritus , No rash, No other Psychiatric/Neurological: Weakness Physical Exam Vital Signs Vital Signs - First Documented 06/03/18 15:15 Temp 96.6 Pulse 104 Resp 20 B/P (MAP) 169/81 (110) Pulse Ox 97 Capillary Refill : Height, Weight, BMI Height: 5'7.00" Weight: 256lbs. 0.0oz. 116.512858am; 40.1 BMI Method: General Appearance: Mild Distress Neck: Supple Respiratory: Lungs Clear Cardiovascular: Systolic Murmur, Gallop/S4, Tachycardia Gastrointestinal: Normal Bowel Sounds, Non Tender, Soft Rectal: Blood Streaked Stool, Heme Positive Stool Back: No CVA Tenderness Extremity: Non Tender, No Calf Tenderness, No Pedal Edema Neurologic/Psychiatric: Alert, Oriented x3 Skin: Warm/Dry Comments Laboratory Tests 06/03/18 16:50: White Blood Count 7.4, Red Blood Count 4.25L, Hemoglobin 11.7L, Hematocrit 35L, Mean Corpuscular Volume 83, Mean Corpuscular Hemoglobin 28, Mean Corpuscular Hemoglobin Concent 33, Red Cell Distribution Width 14.0, Platelet Count 246, Mean Platelet Volume 9.6, Neutrophils (%) (Auto) 68, Lymphocytes (%) (Auto) 23, Monocytes (%) (Auto) 7, Eosinophils (%) (Auto) 2, Basophils (%) (Auto) 0, Neutrophils # (Auto) 5.0, Lymphocytes # (Auto) 1.7, Monocytes # (Auto) 0.5, Eosinophils # (Auto) 0.2, Basophils # (Auto) 0.0, Sodium Level 137, Potassium Level 3.9, Chloride Level 103, Carbon Dioxide Level 21, Anion Gap 13, Blood Urea Nitrogen 14, Creatinine 0.72, Estimat Glomerular Filtration Rate > 60, BUN/ Creatinine Ratio 19, Glucose Level 157H, Calcium Level 9.5, Corrected Calcium 9.7, Total Bilirubin 0.2, Aspartate Amino Transf (AST/SGOT) 14, Alanine Aminotransferase (ALT/SGPT) 18, Alkaline Phosphatase 56, Total Protein 6.6, Albumin 3.8 06/03/18 17:06: Glucometer 169H Assessment/Plan Assessment and Plan 1. Acute Lower Gastrointestinal Hemorrhage--admit and monitor H/H, consult surgery for possible endoscopy, IVFs 2. Hypertension--resume home BP meds if BP stable 3. Diabetes mellitus--start accuchecks with sliding scale insulin Admission Diagnosis Admission Status: Inpatient Order (span 2 midnights) Reason for Inpatient Admission: Will need surgical eval for possible endoscopy and serial H/H Clinical Quality Measures DVT/VTE Risk/Contraindication: Risk Factor Score Per Nursin RFS Level Per Nursing on Admit: 3=High IRAIS ALVARADO DO Jun 03, 2018 18:10
[2018-06-03] MEDS ORDERED: POLYETHYLENE GLYCOL 17 GM (MIRALAX) PACK ONE (18:35)
[2018-06-03] MEDS: POLYETHYLENE GLYCOL 17 GM (MIRALAX) PACK PO SCH ×2 (18:38→20:16)
--- NOTE | 2018-06-03 18:40 | Consultation ---
History of Present Illness History of Present Illness Patient Consulted On(janeth/time) 06/03/18 18:34 Time Seen by Provider: 18:13 History of Present Illness Surgery asked to consult regarding rectal bleed. HPI per Medicine: This is a 72 year old male who had a loose bowel movement overnight that had bright red blood in it. As of this morning he had another 4 loose bowel movements all containing bright red blood. He felt fatigued and presented to my office for evaluation where he was mildly tachycardic with a pulse of 102 and his blood pressure was 110/60. His rectal exam revealed grossly positive red blood. He was directly admitted for surgery consult and further treatment and evaluation. Pt states he has never had problems like this before; he thinks 30 yrs ago had minimal blood, but nothing like this. He states he thinks he had a colonoscopy about 5 yrs ago and at that time they found a polyp. He does not remember how large and doesn't remember being told he had any diverticula. Pt states he has had at least 4 bloody BM's, the last one may have been less than others. He denies any abdominal pain, no heartburn or GERD symptoms. He denies abdominal bloating. His main complaint is of fatigue. Allergies and Home Medications Allergies Coded Allergies: No Known Drug Allergies (Unverified , 02/07/13) Home Medications Aspirin 81 Mg Tablet.dr, 81 MG PO BID, (Reported) Atenolol 100 Mg Tablet, 50 MG PO BID take 1/2 tab po BID Prescribed by: ARMANDO HIRSCH on 03/19/18 1258 Atorvastatin Calcium 20 Mg Tablet, 20 MG PO DAILY, (Reported) Bupropion HCl 150 Mg Tab.er.24h, 150 MG PO DAILY, (Reported) Colestipol HCl 1 Gm Tablet, 2 GM PO BID, (Reported) TAKES 2 (1GM) TABLETS Cyanocobalamin (Vitamin B-12) 1,000 Mcg Tablet, 2,000 MCG PO DAILY, (Reported) Doxazosin Mesylate 2 Mg Tablet, 2 MG PO HS, (Reported) Escitalopram Oxalate 20 Mg Tablet, 20 MG PO DAILY, (Reported) Glucosa Real 2Kcl/Chondroitin Real 1 Each Capsule, 1 CAP PO BID, (Reported) Irbesartan 300 Mg Tablet, 300 MG PO DAILY, (Reported) Metformin HCl 1,000 Mg Tablet, 1,000 MG PO BID, (Reported) Potassium Chloride 8 Meq Tablet.er, 8 MEQ PO BID, (Reported) Sitagliptin Phosphate 100 Mg Tablet, 100 MG PO DAILY, (Reported) Triamterene/Hydrochlorothiazid 1 Each Tablet, 1 TAB PO DAILY, (Reported) Patient Home Medication List Home Medication List Reviewed: Yes Past [id number] Hx Patient Social History Alcohol Use: Rarely Uses Number of Drinks Today: 0 Recreational Drug Use: No Smoking Status: Never a Smoker Recent Foreign Travel: No Contact w/Someone Who Travel: No Recent Infectious Disease Expo: No Recent Hopitalizations: No Physical Abuse Screen: No Sexual Abuse: No Immunizations Up To Date Tetanus Booster (TDap): Unknown PED Vaccines UTD: No Date of Pneumonia Vaccine: May 10, 2009 Date of Influenza Vaccine: May 27, 2018 Seasonal Allergies Seasonal Allergies: No Surgeries History of Surgeries: Yes (bilat knee scope, LEFT TOTAL KNEE REPLACEMENT ) Respiratory History of Respiratory Disorde: No Cardiovascular History of Cardiac Disorders: Yes Cardiac Disorders: Hypertension Neurological History of Neurological Disord: No Reproductive System Hx Reproductive Disorders: No Genitourinary History of Genitourinary Disor: No Gastrointestinal History of Gastrointestinal Di: Yes Gastrointestinal Disorders: Polyps Musculoskeletal History of Musculoskeletal Dis: No Musculoskeletal Disorders: Arthritis Endocrine History of Endocrine Disorders: Yes Endocrine Disorders: Diabetes, Non-Insulin dep HEENT History of HEENT Disorders: Yes (BILAT CATARACT REMOVED) HEENT Disorders: Cataract Hearing Impairment: Hard of Hearing, Bilateral Hearing Aide Cancer History of Cancer: No Psychosocial History of Psychiatric Problem: Yes Behavioral Health Disorders: Depression Integumentary History of Skin or Integumenta: No Blood Transfusions History of Blood Disorders: No Family Medical History Significant Family History: CAD Over 55 Years Old, Diabetes Family Medial History: Cardiovascular disease G8 BROTHER Diabetes mellitus G8 BROTHER Psychosocial problem 19 MOTHER (bipolar) Review of Systems-General Constitutional: No chills; malaise EENTM: No blurred vision, No double vision, No hoarseness, No epistaxis, No throat pain, No throat swelling Respiratory: No cough, No dyspnea on exertion, No hemoptysis, No short of breath Cardiovascular: No chest pain, No edema, No palpitations Gastrointestinal: No abdominal pain, No dysphagia, No nausea, No vomiting Genitourinary: No dysuria, No frequency, No hematuria Musculoskeletal: No back pain, No joint pain, No joint swelling, No muscle pain Skin: No change in hair/nails, No lesions; other ( stated he looked pale when he woke up from nap this afternoon) Psychiatric/Neurological: Depressed; Denies Seizure, Denies Tremors Other pt denies any history of abnormal bruising or bleeding Physical Exam-General Problems Physical Exam Vital Signs Vital Signs - First Documented 06/03/18 15:15 Temp 96.6 Pulse 104 Resp 20 B/P (MAP) 169/81 (110) Pulse Ox 97 Capillary Refill : General Appearance: WD/WN, no apparent distress Eyes: Bilateral Eye PERRL, Bilateral Eye EOMI HEENT: pharynx normal; No scleral icterus (R), No scleral icterus (L) Neck: non-tender, full range of motion; No thyromegaly Respiratory: chest non-tender, lungs clear, normal breath sounds, no respiratory distress, no accessory muscle use Cardiovascular: no edema, no murmur, tachycardia Gastrointestinal: normal bowel sounds, non tender, soft, no organomegaly, no pulsatile mass Back: no CVA tenderness, no vertebral tenderness Extremities: normal range of motion, non-tender, normal inspection, no pedal edema, no calf tenderness, normal capillary refill Neurologic/Psychiatric: strategic alliances manager II-XII nml as tested, no motor/sensory deficits, alert, normal mood/affect, oriented x 3 Skin: normal color (maybe slightly pale), warm/dry Lymphatic: no adenopathy (neck, axilla or groin) Data Review Labs Laboratory Tests 06/03/18 16:50: White Blood Count 7.4, Red Blood Count 4.25L, Hemoglobin 11.7L, Hematocrit 35L, Mean Corpuscular Volume 83, Mean Corpuscular Hemoglobin 28, Mean Corpuscular Hemoglobin Concent 33, Red Cell Distribution Width 14.0, Platelet Count 246, Mean Platelet Volume 9.6, Neutrophils (%) (Auto) 68, Lymphocytes (%) (Auto) 23, Monocytes (%) (Auto) 7, Eosinophils (%) (Auto) 2, Basophils (%) (Auto) 0, Neutrophils # (Auto) 5.0, Lymphocytes # (Auto) 1.7, Monocytes # (Auto) 0.5, Eosinophils # (Auto) 0.2, Basophils # (Auto) 0.0, Sodium Level 137, Potassium Level 3.9, Chloride Level 103, Carbon Dioxide Level 21, Anion Gap 13, Blood Urea Nitrogen 14, Creatinine 0.72, Estimat Glomerular Filtration Rate > 60, BUN/ Creatinine Ratio 19, Glucose Level 157H, Calcium Level 9.5, Corrected Calcium 9.7, Total Bilirubin 0.2, Aspartate Amino Transf (AST/SGOT) 14, Alanine Aminotransferase (ALT/SGPT) 18, Alkaline Phosphatase 56, Total Protein 6.6, Albumin 3.8 06/03/18 17:06: Glucometer 169H Assessment/Plan Assessment/Plan Assessment/Plan Rectal Bleed Mild Anemia Malaise/fatigue DM Depression Pt has rectal bleed which is probably the cause of his anemia; which I expect will probably be lower tomorrow. Fatigue probably also due to the blood loss. He would like to get this worked up while he is in the hospital. We discussed the possible causes of rectal bleeding; most common being Internal hemorrhoids or fissure, followed by Diverticular bleed. Less common would be ulceration/ inflammation, followed by polyps and very rare would be cancer. Also talked about the risks and complications of procedures; not limited to pain, bleeding, infection , and worst complication of esophageal or intestinal perforation. All questions answered to his and his 's satisfaction. We also talked about possible blood transfusions and what would require him to get transfused. I also warned him about getting up quickly which could trigger a vaso-vagal reaction (syncope/ passing out). Clinical Quality Measures DVT/VTE Risk/Contraindication: Risk Factor Score Per Nursin RFS Level Per Nursing on Admit: 3=High CAMELIA FERREIRA DO Jun 03, 2018 18:40
[2018-06-03 20:05] VITALS: BP 151/85
[2018-06-03] MEDS: ATENOLOL 50 MG (TENORMIN) TAB PO SCH (20:16)
[2018-06-03] MEDS: PANTOPRAZOLE 40 MG (PROTONIX) VIAL IV SCH (20:16)
[2018-06-03] MEDS ORDERED: BISACODYL 5 MG (DULCOLAX) TABLET PO ONE (21:00)
[2018-06-03 21:11] LABS: HEMOGLOBIN 11.4 G/DL (13.3-17.7)
[2018-06-04 00:22] VITALS: BP 146/76
[2018-06-04] MEDS: NS IV 1000 ML 1,000 ML IV SCH ×2 (00:53→09:00)
[2018-06-04 04:00] LABS: BASOPHILS % (AUTO) 0 % (0-10); EOSINOPHILS # (AUTO) 0.2 10^3/uL (0.0-0.3); EOSINOPHILS % (AUTO) 3 % (0-10); HEMATOCRIT 34 % (40-54); HEMOGLOBIN 10.9 G/DL (13.3-17.7); LYMPHOCYTES # (AUTO) 1.6 X 10^3 (1.0-4.0); LYMPHOCYTES % (AUTO) 25 % (12-44); MEAN CORPUSCULAR HEMOGLOBIN 27 PG (25-34); MEAN CORPUSCULAR HGB CONC 33 G/DL (32-36); MEAN CORPUSCULAR VOLUME 84 FL (80-99); MEAN PLATELET VOLUME 10.1 FL (7.4-10.4); MONOCYTES # (AUTO) 0.7 X 10^3 (0.0-1.0); MONOCYTES % (AUTO) 11 % (0-12); NEUTROPHILS # (AUTO) 3.9 X 10^3 (1.8-7.8); NEUTROPHILS % (AUTO) 61 % (42-75); PLATELET COUNT 208 10^3/uL (130-400); RED BLOOD COUNT 3.99 10^6/uL (4.35-5.85); RED CELL DISTRIBUTION WIDTH 13.9 % (10.0-14.5); WHITE BLOOD COUNT 6.4 10^3/uL (4.3-11.0)
[2018-06-04 04:02] VITALS: BP 133/77
[2018-06-04 04:34] LABS: BUN/CREATININE RATIO 16; CALCIUM 8.8 MG/DL (8.5-10.1); CARBON DIOXIDE 20 MMOL/L (21-32); CHLORIDE 108 MMOL/L (98-107); CREATININE SERUM 0.62 MG/DL (0.60-1.30); GFR ESTIMATED > 60; GLUCOSE 138 MG/DL (70-105); POTASSIUM 3.8 MMOL/L (3.6-5.0); SODIUM 137 MMOL/L (135-145)
[2018-06-04] MEDS: inSUlin ASPART (NovoLOG) 1 UNIT/0.01 ML (CHARGE PER UNIT) SC SCH ×2 (06:06→13:27)
[2018-06-04] MEDS: POLYETHYLENE GLYCOL 17 GM (MIRALAX) PACK PO SCH (06:09)
[2018-06-04 08:00] VITALS: BP 169/93
[2018-06-04] MEDS ORDERED: buPROPion XL 150 MG (WELLBUTRIN XL) NON-FORM PO SCH (09:00)
[2018-06-04] MEDS ORDERED: NON-FORMULARY MEDICATION 1 EA EA (Escitalopram Oxalate 20 MG) PO SCH (09:00)
[2018-06-04] MEDS ORDERED: NON-FORMULARY MEDICATION 1 EA EA (Irbesartan 300 MG) PO SCH (09:00)
[2018-06-04] MEDS ORDERED: NON-FORMULARY MEDICATION 1 EA EA (Sitagliptin Phosphate (Januvia) 100 MG) PO SCH (09:00)
[2018-06-04] MEDS: ATENOLOL 50 MG (TENORMIN) TAB PO SCH (09:00)
[2018-06-04] MEDS ORDERED: LINAGLIPTIN (TRADJENTA) 5 MG TABLET PO SCH (09:00)
[2018-06-04] MEDS ORDERED: IRBESARTAN 150 MG (AVAPRO) TAB PO SCH (09:00)
[2018-06-04] MEDS: PANTOPRAZOLE 40 MG (PROTONIX) VIAL IV SCH (09:01)
[2018-06-04] MEDS ORDERED: ATEN100T PO (09:49)
--- NOTE | 2018-06-04 10:49 | Progress Note ---
Subjective Time Seen by a Provider: 10:11 Subjective/Events-last exam Pt seen and examined, denies abdominal pain. States he still has some brighter red blood in his BM along with a more maroon color. In addition he does see some brown fecal material. Review of Systems General: No Chills, No Night Sweats HEENT: No Head Aches Pulmonary: No Dyspnea, No Cough Cardiovascular: No: Chest Pain, Palpitations Gastrointestinal: No: Nausea, Vomiting, Abdominal Pain Objective Exam Vital Signs Date Time Temp Pulse Resp B/P (MAP) Pulse Ox O2 Delivery O2 Flow Rate FiO2 06/04/18 07:00 66 06/04/18 04:02 98.4 80 20 133/77 (95) 96 Room Air 06/04/18 01:00 75 06/04/18 00:22 99.5 77 18 146/76 (99) 95 06/03/18 20:05 98.6 91 22 151/85 (107) 96 06/03/18 18:59 90 06/03/18 17:13 93 06/03/18 15:15 96.6 104 20 169/81 (110) 97 I & O 06/04/18 07:00 Intake Total 4500 ml Output Total 1275 ml Balance 3225 ml Capillary Refill : General Appearance: No Apparent Distress, WD/WN HEENT: PERRL/EOMI, Pharynx Normal Respiratory: Lungs Clear, Normal Breath Sounds, No Accessory Muscle Use, No Respiratory Distress Cardiovascular: Regular Rate, Rhythm, Systolic Murmur Gastrointestinal: normal bowel sounds, non tender, soft, no organomegaly, no pulsatile mass, distended (?? mildly distended) Extremity: Non Tender, No Calf Tenderness, No Pedal Edema Neurologic/Psychiatric: Alert, Oriented x3 Skin: Warm/Dry Results Lab Laboratory Tests 06/03/18 16:50: White Blood Count 7.4, Red Blood Count 4.25L, Hemoglobin 11.7L, Hematocrit 35L, Mean Corpuscular Volume 83, Mean Corpuscular Hemoglobin 28, Mean Corpuscular Hemoglobin Concent 33, Red Cell Distribution Width 14.0, Platelet Count 246, Mean Platelet Volume 9.6, Neutrophils (%) (Auto) 68, Lymphocytes (%) (Auto) 23, Monocytes (%) (Auto) 7, Eosinophils (%) (Auto) 2, Basophils (%) (Auto) 0, Neutrophils # (Auto) 5.0, Lymphocytes # (Auto) 1.7, Monocytes # (Auto) 0.5, Eosinophils # (Auto) 0.2, Basophils # (Auto) 0.0, Sodium Level 137, Potassium Level 3.9, Chloride Level 103, Carbon Dioxide Level 21, Anion Gap 13, Blood Urea Nitrogen 14, Creatinine 0.72, Estimat Glomerular Filtration Rate > 60, BUN/ Creatinine Ratio 19, Glucose Level 157H, Calcium Level 9.5, Corrected Calcium 9.7, Total Bilirubin 0.2, Aspartate Amino Transf (AST/SGOT) 14, Alanine Aminotransferase (ALT/SGPT) 18, Alkaline Phosphatase 56, Total Protein 6.6, Albumin 3.8 06/03/18 17:06: Glucometer 169H 06/03/18 20:39: Glucometer 136H 06/03/18 21:00: Hemoglobin 11.4L, Hematocrit 34L 06/04/18 03:40: White Blood Count 6.4, Red Blood Count 3.99L, Hemoglobin 10.9L, Hematocrit 34L, Mean Corpuscular Volume 84, Mean Corpuscular Hemoglobin 27, Mean Corpuscular Hemoglobin Concent 33, Red Cell Distribution Width 13.9, Platelet Count 208, Mean Platelet Volume 10.1, Neutrophils (%) (Auto) 61, Lymphocytes (%) (Auto) 25 , Monocytes (%) (Auto) 11, Eosinophils (%) (Auto) 3, Basophils (%) (Auto) 0, Neutrophils # (Auto) 3.9, Lymphocytes # (Auto) 1.6, Monocytes # (Auto) 0.7, Eosinophils # (Auto) 0.2, Basophils # (Auto) 0.0, Sodium Level 137, Potassium Level 3.8, Chloride Level 108H, Carbon Dioxide Level 20L, Anion Gap 9, Blood Urea Nitrogen 10, Creatinine 0.62, Estimat Glomerular Filtration Rate > 60, BUN/ Creatinine Ratio 16, Glucose Level 138H, Calcium Level 8.8 06/04/18 05:17: Glucometer 136H Assessment/Plan Assessment/Plan Assessment/Plan Rectal Bleed Mild Anemia Malaise/fatigue DM Depression Pt still having some bleeding and old blood in bowel movements. They will take him down to [facility] for his EGD and colonoscopy; hopefully we will find the cause of this bleeding. His Hg did not drop very much, most likely he can go home later today. Clinical Quality Measures DVT/VTE Risk/Contraindication: Risk Factor Score Per Nursin RFS Level Per Nursing on Admit: 3=High CAMELIA FERREIRA DO Jun 04, 2018 10:49
[2018-06-04] MEDS ORDERED: HURRICAINE EXT TUBE (BENZOCAINE) ONE (11:03)
[2018-06-04] MEDS ORDERED: MIDAZOLAM 5 MG/5 ML (VERSED) VIAL ONE (11:24)
[2018-06-04] MEDS ORDERED: PROPOFOL INJECTION 50 ML IV ONE (11:24)
[2018-06-04] MEDS ORDERED: LACTATED RINGERS 1,000 ML IV ONE (11:28)
[2018-06-04] MEDS ORDERED: proPOfol 200 MG/20 ML (DIPRIVAN) VIAL IV ONE ×2 (11:55→12:26)
[2018-06-04] MEDS ORDERED: LACTATED RINGERS 1,000 ML IV STA (11:56)
[2018-06-04] MEDS ORDERED: HURRICAINE EXT TUBE (BENZOCAINE) XX PRN (12:00)
--- NOTE | 2018-06-04 12:52 | Progress Note-Post Operative ---
Post-Operative Progess Note Surgeon (s)/[employer] Inspector (s) Surgeon CAMELIA FERREIRA DO [employer] Inspector: none Pre-Operative Diagnosis Rectal bleed, anemia Post-Operative Diagnosis Gastritis ??De Leon's esophagus Diverticula Internal hemorrhoids Colitis Rectal bleed Procedure & Operative Findings Date of Procedure 06/04/18 Procedure Performed/Findings EGD with biopsy Colon with biopsy Anesthesia Type IV sedation by MACHINE ROUGH ROUNDER Estimated Blood Loss Estimated blood loss (mL): scant Specimens/Packing Specimens Removed Antral bx Lesser Curvature bx GE jxn bx Descending colon bx CAMELIA FERREIRA DO Jun 04, 2018 12:52
--- NOTE | 2018-06-04 12:54 | Endoscopy Discharge Instruct ---
Endo Procedure/Findings Findings 1.: Gastritis, De Leon's Esophagus 2.: Diverticulosis (with bleeding) 3.: Internal Hemorrhoids Discharge Instructions - Activity: You might feel a little sleepy until tomorrow. This is due to the medicine you received to relax you. Until tomorrow, you should: NOT drive a car, operate machinery or power tools. NOT drink any alcoholic beverages. NOT make any important decisions or sign importortant papers. Do not return to work until tomorrow, unless otherwise instructed. Resume previous activities tomorrow. Diet: Start by taking liquids. If you tolerate liquids, advance to solid food. Make appointment to see Dr. Horowitz ([phone]) and Dr. Alvarado in one week. Notify Physician - If you experience excessive bleeding, unusual abdominal pain, fever, or chest pain, contact your doctor immediately. Follow-Up: - I have received and understand the above instructions and will call my doctor if I have any further questions. Patient Signature Date Nurse Signature Other (Relationship) CAMELIA HOROWITZ DO Jun 04, 2018 12:54
[2018-06-04 13:30] VITALS: BP 171/93
[2018-06-04 14:55] VITALS: BP 171/93
--- NOTE | 2018-06-04 16:14 | Anesthesia-General Post-Op ---
MAC Patient Condition Mental Status/LOC: Same as Preop Cardiovascular: Satisfactory Nausea/Vomiting: Absent Respiratory: Satisfactory Pain: Controlled Complications: Absent Post Op Complications Complications None Follow Up Care/Instructions Patient Instructions None needed. Anesthesiology Discharge Order Discharge Order Patient was seen after the procedure and he was doing well, no complaints, stable vital signs, no apparent adverse anesthesia problems. LIZETH MESA DO Jun 04, 2018 16:14
[2018-06-04] MEDS ORDERED: ATENOLOL 100 MG PO SCH (21:00)
--- NOTE | 2018-06-04 22:16 | OPERATIVE REPORT ---
DATE OF SERVICE: PREOPERATIVE DIAGNOSIS: Rectal bleed. POSTOPERATIVE DIAGNOSES: 1. Gastritis. 2. Questionable De Leon esophagus. 3. Diverticulosis with probable bleeding. 4. Internal hemorrhoids. 5. Colitis. 6. Rectal bleed. PROCEDURES: 1. EGD with biopsy. 2. Colonoscopy with biopsy. SURGEON: Rayo Horowitz DO DRAFTER: None. ANESTHESIA: IV sedation by the REMNANTS CUTTER. BLOOD LOSS: Scant. FLUIDS: Per anesthesia. POSTOPERATIVE CONDITION: Stable. SPECIMENS: 1. One biopsy from the antrum. 2. One biopsy from lesser curvature. 3. One biopsy from GE junction. 4. Descending colon biopsy. INDICATION FOR PROCEDURE: The patient is a 72-year-old male who came in with rectal bleeding. He was a little bit anemic; however, on day #2, his hemoglobin did not drop that much and needed a workup. I would like to do EGD and colonoscopy. FINDINGS: The patient had a little bit of gastritis, but no obvious bleeding source in the stomach, possible De Leon's esophagus. On colonoscopy, he had multiple diverticula, nothing actively bleeding, looked like there was some melena from these diverticula, although I did not see any large polyps or masses, did have some very large grade 2 internal hemorrhoids, but they did not look like they had recently bled. PROCEDURE NOTE: After informed consent was obtained, the patient was brought to the endoscopy suite and placed in the left lateral decubitus position. He was administered IV sedation by the REMNANTS CUTTER who then monitored his vitals the entire time, heart rate, blood pressure and pulse ox and the scope was inserted down the mouth through the esophagus into the stomach, fungating into the stomach looked a little bit red like gastritis, pushed into the duodenum. Duodenum looked okay. Pulled back and at the antrum, did a biopsy, pulled back. Lesser curvature also looked a little bit red, did a biopsy retroflexed, did not really see a hiatal hernia. At this point, then suctioned out all the fluid in the stomach and then up into the GE junction, looked like there was a little bit of creeping up of the Z line, took a biopsy here to rule out De Leon's esophagus. It did look like it may have been early De Leon's esophagus. Pulled up out the esophagus; looked fine and pulled the scope out the esophagus and out the mouth. Switched gloves and switched cameras and went to the other side and started the colonoscopy. Immediately upon entry, there was lot of black melanotic stool, minimal retained fecal material, flushed with a lot of saline able to push through all the way to the cecum. The ascending colon and cecum was only bile stained. There was no black melanotic stool. Pushed into cecum took a picture of appendiceal orifice. Pushed into the terminal ileum, took a picture. Again, no blood coming from the top, so I believe this is mostly from the left side of the colon, possibly transverse also. Slowly withdrew the scope insufflating to look circumferentially while I was looking at the cecum, up the ascending colon to the hepatic flexure, then down the transverse colon to the splenic flexure. Again, there was diverticula and melanotic looking stool, flushed most of this out. Able to see the mace, did not see any large polyps to the splenic flexure, then down in the descending colon and sigmoid. In the descending colon, I saw one area of colitis or just a little information, I elected to do a biopsy here thought may have seen a small polyp, tried to do a snare polypectomy of this, but unfortunately unable to get this up because the intestine was moving and he was expelling the air and could not find a spot again. I had actually got the snare around it, but then colon removed unfortunately. Looked here for 10-15 minutes to try and find this area again could not find it. Again, throughout here some diverticula and melanotic material and then down into the sigmoid and finally into the rectum, retroflexed the rectal vault, saw some very large grade 2 internal hemorrhoids, took a picture of this, but none of them looked they have been recently bleeding and then withdrew the scope. The patient tolerated the procedure. He was recovered in endoscopy suite and then sent back to his room. Job ID: [id number] DocumentID: [id number] Dictated Date: 06/04/2018 13:05:02 Genetic Engineer Date: 06/04/2018 21:50:25 Dictated By: DO ANASTASIA BAEZ
[2018-06-05] MEDS ORDERED: ESCITALOPRAM 20 MG (LEXAPRO) TABLET NON-FORMULARY PO SCH (09:00)
[2018-06-05] MEDS ORDERED: IRBESARTAN 300MG TABLET PO SCH (09:00)
[2018-06-05] MEDS ORDERED: JANUVIA 100MG TABLET PO SCH (09:00)
--- OUTSIDE RECORDS SUMMARY | 2018-06-08 12:12 | XMS REPORT | Continuity of Care Document ---
Author Author [facility] Organization [facility] Address Unknown Phone Unavailable Allergies Active Description Code Type Severity Reaction Onset Reported/Identified Relationship to Patient Clinical Status Yes No Known Drug Allergies [id number] Drug Allergy Unknown N/A 02/07/2013 Medications There [...] 08/26/2017 JOSELITO DUKE MD Ot Z79.899 OTHER ARTIST SCIENTIFIC (CURRENT) DRUG THERAPY 08/27/2017 JOSELITO DUKE MD [...] 08/27/2017 JOSELITO DUKE MD Ot Z79.899 OTHER CARE HOME (CURRENT) DRUG THERAPY 08/28/2017 JOSELITO DUKE MD [...] 08/28/2017 JOSELITO DUKE MD Ot Z79.899 OTHER CARE HOME (CURRENT) DRUG THERAPY 09/01/2017 JOSELITO DUKE MD [...] 09/01/2017 JOSELITO DUKE MD Ot Z79.899 OTHER CARE HOME (CURRENT) DRUG THERAPY 11/04/2017 DOMINGA WOLF, LYSSA Torres Ot V72.84 EXAM PRE-OPERATIVE NOS 11/04/2017 YOUNG LARIOS FLOOR PERSON Ot M19.072 PRIMARY OSTEOARTHRITIS, LEFT ANKLE AND F 11/04/2017 YOUNG LARIOS FLOOR PERSON Ot M77.32 CALCANEAL SPUR, LEFT FOOT 11/04/2017 ORENDER DO, ARMANDO S Ot M17.12 UNILATERAL PRIMARY OSTEOARTHRITIS, LEFT 11/05/2017 DOMINGA WOLF, LYSSA Torres Ot V72.84 EXAM PRE-OPERATIVE NOS 11/05/2017 YOUNG LARIOS FLOOR PERSON Ot M19.072 PRIMARY OSTEOARTHRITIS, LEFT ANKLE AND F 11/05/2017 YOUNG LARIOS FLOOR PERSON Ot M77.32 CALCANEAL SPUR, LEFT FOOT 11/05/2017 ORENDER DO, ARMANDO S Ot M17.12 UNILATERAL PRIMARY OSTEOARTHRITIS, LEFT 11/18/2017 KODI, SHARLA R FLOOR PERSON Ot M17.12 UNILATERAL PRIMARY OSTEOARTHRITIS, LEFT 11/18/2017 KODI, SHARLA R FLOOR PERSON Ot Z01.810 ENCOUNTER FOR PREPROCEDURAL CARDIOVASCUL 11/18/2017 KODI, SHARLA R FLOOR PERSON Ot Z01.811 ENCOUNTER FOR PREPROCEDURAL RESPIRATORY 11/18/2017 KODI, SHARLA R FLOOR PERSON Ot Z96.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 LEFT ARTIFICIAL KNEE JOINT 11/19/2017 DOMINGA WOLF, LYSSA Torres Ot V72.84 EXAM PRE-OPERATIVE NOS 11/19/2017 YOUNG LARIOS FLOOR PERSON Ot M19.072 PRIMARY OSTEOARTHRITIS, LEFT ANKLE AND F 11/19/2017 YOUNG LARIOS FLOOR PERSON Ot M77.32 CALCANEAL SPUR, LEFT FOOT 11/19/2017 ORENDER DO, ARMANDO S Ot M17.12 UNILATERAL PRIMARY OSTEOARTHRITIS, LEFT 11/19/2017 KODI, SHARLA R FLOOR PERSON Ot M17.12 UNILATERAL PRIMARY OSTEOARTHRITIS, LEFT 11/19/2017 KODI, SHARLA R FLOOR PERSON Ot Z01.810 ENCOUNTER FOR PREPROCEDURAL CARDIOVASCUL 11/19/2017 KODI, SHARLA R FLOOR PERSON Ot Z01.811 ENCOUNTER FOR PREPROCEDURAL RESPIRATORY 11/19/2017 KODI, SHARLA R FLOOR PERSON Ot Z96.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 LEFT ARTIFICIAL KNEE JOINT 11/23/2017 ORENDER DO, ARMANDO S Ot R07.9 CHEST PAIN, UNSPECIFIED 11/23/2017 ORENDER DO, ARMANDO S Ot Z01.810 ENCOUNTER FOR PREPROCEDURAL CARDIOVASCUL 11/27/2017 ORENDER DO, ARMANDO S Ot I35.1 NONRHEUMATIC AORTIC (VALVE) INSUFFICIENC 11/27/2017 ORENDER DO, ARMANDO S Ot Z01.810 ENCOUNTER FOR PREPROCEDURAL CARDIOVASCUL 12/07/2017 KODI, SHARLA R FLOOR PERSON Ot M17.12 UNILATERAL PRIMARY OSTEOARTHRITIS, LEFT 12/07/2017 KODI, SHARLA R FLOOR PERSON Ot Z01.810 ENCOUNTER FOR PREPROCEDURAL CARDIOVASCUL 12/07/2017 KODI, SHARLA R FLOOR PERSON Ot Z01.811 ENCOUNTER FOR PREPROCEDURAL RESPIRATORY 12/07/2017 KODI, SHARLA R FLOOR PERSON Ot Z96.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 LEFT ARTIFICIAL KNEE JOINT 12/09/2017 KODI, SHARLA R FLOOR PERSON Ot M17.12 UNILATERAL PRIMARY OSTEOARTHRITIS, LEFT 12/09/2017 KODI, SHARLA R FLOOR PERSON Ot Z01.810 ENCOUNTER FOR PREPROCEDURAL CARDIOVASCUL 12/09/2017 KODI, SHARLA R FLOOR PERSON Ot Z01.811 ENCOUNTER FOR PREPROCEDURAL RESPIRATORY 12/09/2017 KODI, SHARLA R FLOOR PERSON Ot Z96.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 LEFT ARTIFICIAL KNEE [...] UNSPECIFIED 03/19/2018 JOSELITO DUKE MD Ot Z79.84 CARE HOME (CURRENT) USE OF ORAL HYPOGLYC Procedures Code Description Performed By Performed On [id number] REPLACE OF L KNEE JT WITH SYNTH [...] measurement by glucometer (mass/volume) 200 mg/dL 70-110 Complete blood count (CBC) with automated white blood cell (WBC) differential - 06/03/18 16:50 Blood leukocytes automated count (number/volume) 7.4 10*3/uL 4.3-11.0 Blood erythrocytes automated count (number/volume) 4.25 10*6/uL 4.35-5.85 Venous blood hemoglobin measurement (mass/volume) 11.7 g/dL 13.3-17.7 Blood hematocrit (volume fraction) 35 % 40-54 Automated erythrocyte mean corpuscular volume 83 [foz_us] 80-99 Automated erythrocyte mean corpuscular hemoglobin (mass per erythrocyte) 28 pg 25-34 Automated erythrocyte mean corpuscular hemoglobin concentration measurement ( mass/volume) 33 g/dL 32-36 Automated erythrocyte distribution width ratio 14.0 % 10.0-14.5 Automated blood platelet count (count/volume) 246 10*3/uL 130-400 Automated blood platelet mean volume measurement 9.6 [foz_us] 7.4-10.4 Automated blood neutrophils/100 leukocytes 68 % 42-75 Automated blood lymphocytes/100 leukocytes 23 % 12-44 Blood monocytes/100 leukocytes 7 % 0-12 Automated blood eosinophils/100 leukocytes 2 % 0-10 Automated blood basophils/100 leukocytes 0 % 0-10 Blood neutrophils automated count (number/volume) 5.0 10*3 1.8-7.8 Blood lymphocytes automated count (number/volume) 1.7 10*3 1.0-4.0 Blood monocytes automated count (number/volume) 0.5 10*3 0.0-1.0 Automated eosinophil count 0.2 10*3/uL 0.0-0.3 Automated blood basophil count (count/volume) 0.0 10*3/uL 0.0-0.1 Capillary blood glucose measurement by glucometer (mass/volume) - 06/03/18 20: 39 Capillary blood glucose measurement by glucometer (mass/volume) 136 mg/dL 70-110 Whole blood hemoglobin and hematocrit panel - 06/03/18 21:00 Venous blood hemoglobin measurement (mass/volume) 11.4 g/dL 13.3-17.7 Blood hematocrit (volume fraction) 34 % 40-54 Complete blood count (CBC) with automated white blood cell (WBC) differential - 06/04/18 03:40 Blood leukocytes automated count (number/volume) 6.4 10*3/uL 4.3-11.0 Blood erythrocytes automated count (number/volume) 3.99 10*6/uL 4.35-5.85 Venous blood hemoglobin measurement (mass/volume) 10.9 g/dL 13.3-17.7 Blood hematocrit (volume fraction) 34 % 40-54 Automated erythrocyte mean corpuscular volume 84 [foz_us] 80-99 Automated erythrocyte mean corpuscular hemoglobin (mass per erythrocyte) 27 pg 25-34 Automated erythrocyte mean corpuscular hemoglobin concentration measurement ( mass/volume) 33 g/dL 32-36 Automated erythrocyte distribution width ratio 13.9 % 10.0-14.5 Automated blood platelet count (count/volume) 208 10*3/uL 130-400 Automated blood platelet mean volume measurement 10.1 [foz_us] 7.4-10.4 Automated blood neutrophils/100 leukocytes 61 % 42-75 Automated blood lymphocytes/100 leukocytes 25 % 12-44 Blood monocytes/100 leukocytes 11 % 0-12 Automated blood eosinophils/100 leukocytes 3 % 0-10 Automated blood basophils/100 leukocytes 0 % 0-10 Blood neutrophils automated count (number/volume) 3.9 10*3 1.8-7.8 Blood lymphocytes automated count (number/volume) 1.6 10*3 1.0-4.0 Blood monocytes automated count (number/volume) 0.7 10*3 0.0-1.0 Automated eosinophil count 0.2 10*3/uL 0.0-0.3 Automated blood basophil count (count/volume) 0.0 10*3/uL 0.0-0.1 Whole blood basic metabolic panel - 06/04/18 03:40 Serum or plasma sodium measurement (moles/volume) 137 mmol/L 135-145 Serum or plasma potassium measurement (moles/volume) 3.8 mmol/L 3.6-5.0 Serum or plasma chloride measurement (moles/volume) 108 mmol/L 98-107 Carbon dioxide 20 mmol/L 21-32 Serum or plasma anion gap determination (moles/volume) 9 mmol/L 5-14 Serum or plasma urea nitrogen measurement (mass/volume) 10 mg/dL 7-18 Serum or plasma creatinine measurement (mass/volume) 0.62 mg/dL 0.60-1.30 Serum or plasma urea nitrogen/creatinine mass ratio 16 NRG Serum or plasma creatinine measurement with calculation of estimated glomerular filtration rate > NRG Serum or plasma glucose measurement (mass/volume) 138 mg/dL 70-105 Serum or plasma calcium measurement (mass/volume) 8.8 mg/dL 8.5-10.1 Capillary blood glucose measurement by glucometer (mass/volume) - 06/04/18 05: 17 Capillary blood glucose measurement by glucometer (mass/volume) 136 mg/dL 70-110 Capillary blood glucose measurement by glucometer (mass/volume) - 06/04/18 13: 26 Capillary blood glucose measurement by glucometer (mass/volume) 133 mg/dL 70-110 Encounters ACCT No. Visit Date/Time Discharge Status Pt. Type Provider Facility Loc./Unit Complaint [id number] 06/03/2018 15:15:00 06/04/2018 14:55:00 DIS Inpatient ARMANDO ALVARADO DO [facility] 4TH GI BLEED [id number] 03/17/2018 06:05:00 03/19/2018 15:20:00 DIS Inpatient SRIKANTH WOLF, JOSELITO Pulido [facility] 4TH OSTEOARTHRITIS LEFT KNEE [id number] 11/27/2017 09:38:00 11/27/2017 23:59:59 CLS Outpatient ARMANDO ALVARADO DO S [facility] CARD PRESURGICAL CLEARANCE [id number] 11/19/2017 07:23:00 11/19/2017 23:59:59 CLS Outpatient ARMANDO ALVARADO DO S [facility] CARD PRESURGICAL CLEARANCE [id number] 11/11/2017 10:45:00 11/11/2017 23:59:59 CLS Preadmit JOSELITO DUKE MD LEFT KNEE SEVERE OSTEOARTHRITIS [id number] 11/03/2017 14:30:00 11/03/2017 23:59:59 CLS Outpatient SHARLA MARIEE Basilio FLOOR PERSON [facility] CARD PRE SURGICAL CLEARANCE [id number] 08/26/2017 07:43:00 08/26/2017 12:40:00 DIS Outpatient JOSELITO DUKE MD [facility] LEFT KNEE MEDIAL MENISCUS TEAR [id number] 08/20/2017 08:57:00 08/20/2017 09:25:00 DIS Outpatient JOSELITO DUKE MD [facility] PREOP LEFT KNEE SCOPE/ PART MED.MEN REP AND CHONDROPLASTY [id number] 07/09/2017 16:26:00 07/09/2017 23:59:59 CLS Outpatient ARMANDO ALVARADO DO [facility] RAD L KNEE PAIN [id number] 06/03/2016 16:32:00 06/03/2016 23:59:59 CLS Outpatient YOUNG LARIOS FLOOR PERSON [facility] RAD LEFT FOOT PAIN, REDNESS,SWELLING [id number] 02/07/2013 11:03:00 02/07/2013 14:50:00 DIS Outpatient LYSSA ORR MD [facility] HX POLYPS [id number] 02/02/2013 07:30:00 02/02/2013 23:59:59 CLS Outpatient LYSSA ORR MD [facility] PREOP HX POLYPS [id number] 03/11/2018 13:44:00 Document Registration [id number] 02/17/2012 13:33:00 Document Registration [id number] 07/09/2011 17:14:00 Document Registration 07/07/17 06/03/2018 13:46:46 06/03/2018 23:59:59 CLS Outpatient Armando Alvarado
== END 2018-06-04 14:55 | disposition home or self-care (01) | DRG 378 ==
LOC: EDSTATUS 09:48 → UNDOADMOB 15:15 → 4TH 15:15 → UNDODISOB 06-04 14:55
PROVIDERS: ADMIT Family Medicine; ATTEND Family Medicine
PROC: 0DB48ZX Excision of Esophagogastric Junction, Via Natural or Artificial Opening Endoscopic, Diagnostic (ICD-10-PCS; 2018-06-04)
PROC: 0DBM8ZX Excision of Descending Colon, Via Natural or Artificial Opening Endoscopic, Diagnostic (ICD-10-PCS; principal; 2018-06-04 11:24)
PROC: 0DB78ZX Excision of Stomach, Pylorus, Via Natural or Artificial Opening Endoscopic, Diagnostic (ICD-10-PCS; 2018-06-04 11:24)
DX: K57.31 Diverticulosis of large intestine without perforation or abscess with bleeding (principal); D62 Acute posthemorrhagic anemia; K64.1 Second degree hemorrhoids; K52.9 Noninfective gastroenteritis and colitis, unspecified; K29.70 Gastritis, unspecified, without bleeding; K22.70 Barrett's esophagus without dysplasia; I10 Essential (primary) hypertension; E11.9 Type 2 diabetes mellitus without complications; F32.9 Major depressive disorder, single episode, unspecified; M19.91 Primary osteoarthritis, unspecified site; H91.93 Unspecified hearing loss, bilateral; Z79.84 Long term (current) use of oral hypoglycemic drugs; Z96.652 Presence of left artificial knee joint; Z86.010 Personal history of colon polyps; Z97.4 Presence of external hearing-aid
CPT/HCPCS: 36415; 80048; 80053; 82962; 85014; 85018; 85025

== ENCOUNTER → 2021-08-09 | Outpatient (CLI) | payer MEDICARE ==
[~2021-08-09] MED LIST changes: +AMLO-250 PO; -AMLO5TAB7 PO; +ASPI-1238 PO; -ASPI-983 PO; +BUPR150T24 PO; +CAND32TA21 PO; -CAND32TA8 PO; +COLE1TAB PO; +CYAN-41 PO; -CYAN10006 PO; +ESCI-2 PO; -ESCI10TA55 PO; +ESCI20TA39 PO; -ESCI20TA45 PO; +IRBE300T17 PO
== END ==
LOC: LABNPT 06:45
PROVIDERS: ATTEND Family Medicine
DX: U07.1 COVID-19 (principal)
CPT/HCPCS: 87635

== ENCOUNTER 2021-08-15 10:38 | Outpatient (CLI) | payer MEDICARE ==
[~2021-08-15] VITALS: Ht 170.2 cm; Wt 113.4 kg
[2021-08-15] MEDS ORDERED: ACETAMINOPHEN 500 MG TAB (TYLENOL) PO PRN (11:00)
[2021-08-15] MEDS ORDERED: ONDANSETRON 4 MG/2 ML (SDV) Z0FRAN IV PRN (11:00)
[2021-08-15] MEDS ORDERED: diphenhydrAMINE 50 MG/ML INJ (BENADRYL) IV PRN (11:00)
[2021-08-15] MEDS ORDERED: EPINEPHrine INJECTION 1 MG/ML AMP IM PRN (11:00)
[2021-08-15] MEDS ORDERED: CASIRIVIMAB/IMDEVIMAB 1,200 MG in NS (IVPB) 50 ML IV ONE (11:00)
[2021-08-15 11:02] VITALS: BP 129/90
[2021-08-15 12:17] VITALS: BP 144/86
== END 2021-08-15 12:19 | disposition home or self-care (01) ==
LOC: INFUSION 10:38
PROVIDERS: ATTEND Physician Assistant
DX: U07.1 COVID-19 (principal)

== ENCOUNTER → 2023-01-16 | Outpatient (CLI) | payer MEDICARE, SELFPAY ==
--- NOTE | 2023-01-19 11:11 | Diagnostic Imaging Report ---
CT CARDIAC CALCIUM SCORE INDICATION: Coronary artery disease screening. COMPARISON: None available. TECHNIQUE: Limited noncontrast CT chest. FINDINGS: Total coronary artery calcium score is 230. This places the patient at the 8th percentile for age. 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 Visible lungs are clear. No pericardial effusion. IMPRESSION: 1. No incidental abnormality that would require further workup. 2. Total artery calcium score is 230. Dictated by: Dictated on workstation # [id number]
== END ==
LOC: RAD 09:28
PROVIDERS: ATTEND Family Medicine
DX: Z13.6 Encounter for screening for cardiovascular disorders (principal)
CPT/HCPCS: 75571